=== PATIENT | female | born 1935 | race Caucasian/White ===

== ENCOUNTER 2016-07-11 09:49 | Emergency (ER) | payer BC ==
[~2016-07-11] VITALS: Ht 147.3 cm; Wt 62.7 kg
[~2016-07-11 09:49] MED LIST: ASPIR 8181 M1 PO; CARVEDILOL25 MG PO; CEFTIN500 MG PO; CENTRUM SILVER1 EAC4 PO; FLAGYL500 MG PO; GLUCOPHAGE500 MG PO; LIPITOR20 MG PO; LISINOPRIL5 MG PO; PERCOCET 5/31 TABLET PO; TYLENOL ARTHRI650 MG PO; TYLENOL EXTRA500 MG PO; VITAMIN D2000 UNIT PO
[2016-07-11 10:42] LABS: ADD MIUA? YES; BILIRUBIN SMALL; BLOOD SMALL; COLOR DK YELLOW ((YELLOW)); GLUCOSE (STRIP) NEGATIVE; KETONES 15; LEUKOCYTES SMALL; NITRITE NEGATIVE; PROTEIN (STRIP) 30; SPECIFIC GRAVITY 1.022 (1.000-1.030)
[2016-07-11 11:00] LABS: BACTERIA 1+; CASTS NONE SEEN /LPF; CRYSTALS NONE SEEN; EPITHELIAL CELLS 2+; MUCUS 1+; RED BLOOD CELLS 0-5 /HPF (0-5); UCUL ADDED? NO
[2016-07-11 11:15] LABS: EOSINOPHIL (%) 0 % (0-5); HEMATOCRIT 34.7 % (36.0-46.0); IMMATURE GRANULOCYTE (%) 0.1 % (0.0-0.7); IMMATURE GRANULOCYTE COUNT 0.1 K/uL; LYMPHOCYTE COUNT 0.5 K/uL (1.0-2.8); MCH 27.8 PG (29.0-34.0); MCHC 31.7 G/DL (30.0-36.0); MCV 87.6 FL (83-99); MEAN PLAT.VOLUME 10.3 uM^3 (9.5-12.4); MONOCYTE (%) 8.6 % (3-12); MONOCYTE COUNT 0.7 K/uL (0-0.8); NEUTROPHIL (%) 85.9 % (45-76); NEUTROPHIL COUNT 7.3 K/uL (1.8-6.4); PLATELET COUNT 197 K/uL (156-360); RBC DIS.WIDTH-CV 14.7 % (11.8-14.6); RED BLOOD COUNT 3.96 M/uL (3.80-5.20); WHITE BLOOD COUNT 8.5 K/uL (4.1-10.2)
[2016-07-11 11:25] LABS: CHLORIDE 99 mEq/L (99-109); POTASSIUM 3.7 mEq/L (3.7-5.4); SODIUM 134 mEq/L (136-147)
[2016-07-11 11:27] LABS: GLUCOSE 138 mg/dL (70-99)
[2016-07-11 11:29] LABS: ANION GAP 13 MEQ/L (2-14)
[2016-07-11 11:31] LABS: GFR ESTIMATE (CALCULATED) > 59 mL/min/
[2016-07-11 11:32] LABS: UREA NITROGEN (BUN) 17 mg/dL (9-23)
[2016-07-11] MEDS ORDERED: CIPRO500 MG PO (13:09)
[2016-07-11 13:25] VITALS: BP 106/40
== END 2016-07-11 13:40 | disposition home or self-care (01) ==
LOC: EME 09:49
PROVIDERS: Emergency Medicine
DX: R53.1 Weakness (principal); N39.0 Urinary tract infection, site not specified; I10 Essential (primary) hypertension; E11.9 Type 2 diabetes mellitus without complications; Z79.82 Long term (current) use of aspirin; Z87.442 Personal history of urinary calculi
CPT/HCPCS: 71010; 80048; 81003; 83605; 85025; 93005; 99281; 99285; J0696; J7050

== ENCOUNTER 2016-08-03 06:54 | Emergency (ER) | payer BC ==
[~2016-08-03] VITALS: Ht 147.3 cm; Wt 62.4 kg
[~2016-08-03 06:54] MED LIST changes: +CIPRO500 MG PO
[2016-08-03 07:33] LABS: HEMATOCRIT 36.1 % (36.0-46.0); MCH 27.7 PG (29.0-34.0); MCHC 31.6 G/DL (30.0-36.0); MCV 87.8 FL (83-99); MEAN PLAT.VOLUME 11.6 uM^3 (9.5-12.4); PLATELET COUNT 233 K/uL (156-360); RBC DIS.WIDTH-CV 16.2 % (11.8-14.6); RBC DIS.WIDTH-SD 51.9 % (39-53); RED BLOOD COUNT 4.11 M/uL (3.80-5.20); WHITE BLOOD COUNT 6.4 K/uL (4.1-10.2)
[2016-08-03 07:58] LABS: ALKALINE PHOSPHATASE 81 IU/L (3-129); ANION GAP 8 MEQ/L (2-14); CHLORIDE 104 MEQ/L (99-109); GFR ESTIMATE (CALCULATED) > 59 mL/min/; GLUCOSE 117 mg/dL (70-99); POTASSIUM 4.7 MEQ/L (3.7-5.4); SAMPLE HEMOLYSIS CHECK 2; SAMPLE ICTERIC CHECK 0; SAMPLE LIPEMIA CHECK 0; SODIUM 140 MEQ/L (136-147); TOTAL BILIRUBIN 0.4 MG/DL (0.0-1.0); UREA NITROGEN (BUN) 18 mg/dL (9-23)
[2016-08-03 08:01] LABS: ADD MIUA? YES; BILIRUBIN NEGATIVE; BLOOD NEGATIVE; COLOR YELLOW ((YELLOW)); GLUCOSE (STRIP) NEGATIVE; KETONES NEGATIVE; LEUKOCYTES MODERATE; NITRITE NEGATIVE; PROTEIN (STRIP) 30; SPECIFIC GRAVITY 1.032 (1.000-1.030); UROBILINOGEN 0.2 MG/DL (0.2-1.0)
[2016-08-03 08:48] LABS: RED BLOOD CELLS RARE /HPF (0-5); WHITE BLOOD CELLS 30-40 /HPF (0-5)
[2016-08-03 08:49] LABS: BACTERIA 1+ /HPF; CALCIUM OXALATE CRYSTALS 2+ /HPF; CASTS NONE SEEN /LPF; CRYSTALS PRESENT; EPITHELIAL CELLS RARE /HPF; MUCUS NONE SEEN /LPF; UCUL ADDED? NO
[2016-08-03] MEDS ORDERED: BENTYL20 MG PO (11:17)
[2016-08-03 11:29] VITALS: BP 155/87
== END 2016-08-03 11:35 | disposition home or self-care (01) ==
LOC: EME 06:54
DX: R10.32 Left lower quadrant pain (principal); R19.7 Diarrhea, unspecified; I10 Essential (primary) hypertension; E11.9 Type 2 diabetes mellitus without complications; Z79.82 Long term (current) use of aspirin; Z87.442 Personal history of urinary calculi
CPT/HCPCS: 74000; 80053; 81003; 85027; 99281; 99284

== ENCOUNTER 2016-08-14 12:48 | Inpatient (IN) | payer BC ==
[~2016-08-14] VITALS: Ht 147.3 cm; Wt 61.4 kg
[~2016-08-14 12:48] MED LIST changes: +BENTYL20 MG PO
[2016-08-14 15:13] LABS: EOSINOPHIL COUNT 0.1 K/uL (0-0.3); HEMATOCRIT 35.1 % (36.0-46.0); IMMATURE GRANULOCYTE (%) 0.4 % (0.0-0.7); IMMATURE GRANULOCYTE COUNT 0.5 K/uL; LYMPHOCYTE COUNT 1.4 K/uL (1.0-2.8); MCH 27.2 PG (29.0-34.0); MCHC 32.2 G/DL (30.0-36.0); MCV 84.4 FL (83-99); MEAN PLAT.VOLUME 10.2 uM^3 (9.5-12.4); MONOCYTE (%) 9.9 % (3-12); MONOCYTE COUNT 1.4 K/uL (0-0.8); NEUTROPHIL (%) 78.2 % (45-76); PLATELET COUNT 421 K/uL (156-360); RBC DIS.WIDTH-CV 15.9 % (11.8-14.6); RBC DIS.WIDTH-SD 49.2 % (39-53); RED BLOOD COUNT 4.16 M/uL (3.80-5.20)
[2016-08-14 15:16] LABS: CHLORIDE 98 mEq/L (99-109); POTASSIUM 3.3 mEq/L (3.7-5.4); SODIUM 142 mEq/L (136-147)
[2016-08-14 15:19] LABS: GLUCOSE 98 mg/dL (70-99)
[2016-08-14 15:20] LABS: ANION GAP 11 MEQ/L (2-14)
[2016-08-14 15:21] LABS: TOTAL BILIRUBIN 0.6 mg/dL (0.0-1.0)
[2016-08-14 15:22] LABS: ALKALINE PHOSPHATASE 69 IU/L (3-129); GFR ESTIMATE (CALCULATED) > 59 mL/min/
[2016-08-14 15:23] LABS: UREA NITROGEN (BUN) 22 mg/dL (9-23)
[2016-08-14 15:28] LABS: C DIFF TOXIN ND (NEGATIVE)
[2016-08-14 15:48] LABS: INTERNAL CONTROL VALID? YES
[2016-08-14 17:10] LABS: ADD MIUA? YES; BILIRUBIN SMALL; BLOOD NEGATIVE; COLOR AMBER ((YELLOW)); GLUCOSE (STRIP) NEGATIVE; KETONES 20; LEUKOCYTES SMALL; NITRITE NEGATIVE; PROTEIN (STRIP) NEGATIVE; SPECIFIC GRAVITY 1.024 (1.000-1.030)
[2016-08-14 17:47] LABS: BACTERIA RARE /HPF; BUDDING YEAST RARE; EPITHELIAL CELLS RARE /HPF; MUCUS TRACE /LPF; RED BLOOD CELLS 0-5 /HPF (0-5); UCUL ADDED? NO; UNCLASSIFIED CASTS 0-5 /LPF; UNCLASSIFIED CRYSTALS 2+ /HPF; WHITE BLOOD CELLS 20-30 /HPF (0-5)
[2016-08-15] VITALS: BP 141/64
[2016-08-15 04:00] VITALS: BP 137/76
[2016-08-15 07:15] VITALS: BP 127/59
[2016-08-15 07:43] LABS: HEMATOCRIT 31.2 % (36.0-46.0); MCH 27.4 PG (29.0-34.0); MCHC 32.7 G/DL (30.0-36.0); MCV 83.9 FL (83-99); MEAN PLAT.VOLUME 10.8 uM^3 (9.5-12.4); PLATELET COUNT 413 K/uL (156-360); RBC DIS.WIDTH-CV 16.1 % (11.8-14.6); RBC DIS.WIDTH-SD 49.4 % (39-53); RED BLOOD COUNT 3.72 M/uL (3.80-5.20); WHITE BLOOD COUNT 10.6 K/uL (4.1-10.2)
[2016-08-15 07:59] LABS: EOSINOPHIL (%) 1.3 % (0-5); EOSINOPHIL COUNT 0.1 K/uL (0-0.3); IMMATURE GRANULOCYTE (%) 0.5 % (0.0-0.7); IMMATURE GRANULOCYTE COUNT 0.1 K/uL; LYMPHOCYTE COUNT 1.1 K/uL (1.0-2.8); MONOCYTE (%) 11.9 % (3-12); MONOCYTE COUNT 1.3 K/uL (0-0.8); NEUTROPHIL (%) 75.7 % (45-76)
[2016-08-15 09:16] LABS: ANION GAP 6 MEQ/L (2-14); CHLORIDE 102 MEQ/L (99-109); GFR ESTIMATE (CALCULATED) > 59 mL/min/; GLUCOSE 77 mg/dL (70-99); POTASSIUM 2.9 MEQ/L (3.7-5.4); SAMPLE HEMOLYSIS CHECK 0; SAMPLE ICTERIC CHECK 0; SAMPLE LIPEMIA CHECK 0; SODIUM 140 MEQ/L (136-147); UREA NITROGEN (BUN) 21 mg/dL (9-23)
[2016-08-15 14:57] VITALS: BP 131/63
[2016-08-15 23:59] VITALS: BP 114/50
[2016-08-16 06:38] LABS: HEMATOCRIT 30.5 % (36.0-46.0); MCH 27.5 PG (29.0-34.0); MCHC 32.1 G/DL (30.0-36.0); MCV 85.4 FL (83-99); MEAN PLAT.VOLUME 10.8 uM^3 (9.5-12.4); PLATELET COUNT 404 K/uL (156-360); RBC DIS.WIDTH-CV 16.3 % (11.8-14.6); RBC DIS.WIDTH-SD 51.2 % (39-53); RED BLOOD COUNT 3.57 M/uL (3.80-5.20); WHITE BLOOD COUNT 7.5 K/uL (4.1-10.2)
[2016-08-16 07:06] LABS: ANION GAP 7 MEQ/L (2-14); CHLORIDE 104 MEQ/L (99-109); GFR ESTIMATE (CALCULATED) > 59 mL/min/; GLUCOSE 70 mg/dL (70-99); SAMPLE HEMOLYSIS CHECK 0; SAMPLE ICTERIC CHECK 0; SAMPLE LIPEMIA CHECK 0; SODIUM 141 MEQ/L (136-147); UREA NITROGEN (BUN) 14 mg/dL (9-23)
[2016-08-16 08:07] VITALS: BP 123/64
[2016-08-16 17:08] VITALS: BP 110/60
[2016-08-16 23:40] VITALS: BP 105/54
[2016-08-17 07:04] LABS: HEMATOCRIT 31.4 % (36.0-46.0); MCH 27.8 PG (29.0-34.0); MCHC 32.2 G/DL (30.0-36.0); MCV 86.5 FL (83-99); MEAN PLAT.VOLUME 10.1 uM^3 (9.5-12.4); PLATELET COUNT 391 K/uL (156-360); RBC DIS.WIDTH-CV 16.2 % (11.8-14.6); RBC DIS.WIDTH-SD 51.7 % (39-53); RED BLOOD COUNT 3.63 M/uL (3.80-5.20); WHITE BLOOD COUNT 7.7 K/uL (4.1-10.2)
[2016-08-17 07:32] LABS: ANION GAP 8 MEQ/L (2-14); CHLORIDE 109 MEQ/L (99-109); GFR ESTIMATE (CALCULATED) > 59 mL/min/; GLUCOSE 89 mg/dL (70-99); POTASSIUM 3.2 MEQ/L (3.7-5.4); SAMPLE HEMOLYSIS CHECK 0; SAMPLE ICTERIC CHECK 0; SAMPLE LIPEMIA CHECK 0; SODIUM 144 MEQ/L (136-147); UREA NITROGEN (BUN) 12 mg/dL (9-23)
[2016-08-17 08:26] VITALS: BP 120/50
[2016-08-17 08:43] LABS: MAGNESIUM 1.8 mg/dl (1.3-2.7)
[2016-08-17 15:00] VITALS: BP 99/52
[2016-08-17 21:49] VITALS: BP 112/60
[2016-08-18 00:27] VITALS: BP 104/59
[2016-08-18 07:51] VITALS: BP 121/60
[2016-08-18 09:45] LABS: HEMATOCRIT 36.2 % (36.0-46.0); MCH 27.5 PG (29.0-34.0); MCHC 31.8 G/DL (30.0-36.0); MCV 86.6 FL (83-99); MEAN PLAT.VOLUME 10.9 uM^3 (9.5-12.4); PLATELET COUNT 499 K/uL (156-360); RBC DIS.WIDTH-CV 16.5 % (11.8-14.6); RBC DIS.WIDTH-SD 52.4 % (39-53); RED BLOOD COUNT 4.18 M/uL (3.80-5.20); WHITE BLOOD COUNT 6.5 K/uL (4.1-10.2)
[2016-08-18 09:58] LABS: EOSINOPHIL (%) 3.8 % (0-5); EOSINOPHIL COUNT 0.3 K/uL (0-0.3); IMMATURE GRANULOCYTE (%) 0.5 % (0.0-0.7); LYMPHOCYTE COUNT 1.1 K/uL (1.0-2.8); MONOCYTE (%) 11.3 % (3-12); MONOCYTE COUNT 0.7 K/uL (0-0.8); NEUTROPHIL (%) 66.6 % (45-76); NEUTROPHIL COUNT 4.3 K/uL (1.8-6.4)
[2016-08-18 10:26] LABS: ANION GAP 10 MEQ/L (2-14); CHLORIDE 108 MEQ/L (99-109); GFR ESTIMATE (CALCULATED) > 59 mL/min/; GLUCOSE 100 mg/dL (70-99); POTASSIUM 3.8 MEQ/L (3.7-5.4); SAMPLE HEMOLYSIS CHECK 0; SAMPLE ICTERIC CHECK 0; SAMPLE LIPEMIA CHECK 0; SODIUM 142 MEQ/L (136-147); UREA NITROGEN (BUN) 9 mg/dL (9-23)
[2016-08-18] MEDS ORDERED: VANCOMYCIN HCL125 MG PO (14:45)
[2016-08-18] MEDS ORDERED: TYLENOL REGULA325 MG PO (14:50)
[2016-08-18 14:56] VITALS: BP 122/64
== END 2016-08-18 18:05 | disposition home or self-care (01) | DRG 372 ==
LOC: EME 12:48 → 5SOUTH 20:45 → EDOF 20:45 → 5SOUTH 22:28
PROVIDERS: Emergency Medicine; Hospitalist; Physician Assistant; Student in an Organized Health Care Education/Training Program
DX: A04.7 Enterocolitis due to Clostridium difficile (principal); K82.3 Fistula of gallbladder; E87.6 Hypokalemia; K80.20 Calculus of gallbladder without cholecystitis without obstruction; E11.9 Type 2 diabetes mellitus without complications; I50.9 Heart failure, unspecified; E78.5 Hyperlipidemia, unspecified; E86.0 Dehydration; K56.3 Gallstone ileus
CPT/HCPCS: 74176; 78226; 80048; 80053; 81003; 83605; 83630; 83735; 85025; 85027; 87086; 87177; 87329; 87493; 87506; 99281; 99285; A9537; J0696; J1650; J1956; J2270; J3480; J7030; J7050; S0030

== ENCOUNTER 2016-09-30 16:53 | Inpatient (IN) | payer BC ==
[~2016-09-30] VITALS: Ht 147.3 cm; Wt 54.4 kg
[~2016-09-30 16:53] MED LIST changes: +TYLENOL REGULA325 MG PO; +VANCOMYCIN HCL125 MG PO
[2016-09-30 17:36] LABS: HEMATOCRIT 33.3 % (36.0-46.0); MCH 28.3 PG (29.0-34.0); MCHC 33.6 G/DL (30.0-36.0); MCV 84.1 FL (83-99); MEAN PLAT.VOLUME 10.9 uM^3 (9.5-12.4); RBC DIS.WIDTH-CV 19.8 % (11.8-14.6); RBC DIS.WIDTH-SD 60.2 % (39-53); RED BLOOD COUNT 3.96 M/uL (3.80-5.20); WHITE BLOOD COUNT 6.9 K/uL (4.1-10.2)
[2016-09-30 17:42] LABS: PLATELET COUNT 394 K/uL (156-360)
[2016-09-30 17:58] LABS: GLUCOSE 114 mg/dL (70-99)
[2016-09-30 17:59] LABS: ANION GAP 8 MEQ/L (2-14)
[2016-09-30 18:01] LABS: GFR ESTIMATE (CALCULATED) > 59 mL/min/
[2016-09-30 18:02] LABS: POTASSIUM 2.3 mEq/L (3.7-5.4); UREA NITROGEN (BUN) 21 mg/dL (9-23)
[2016-09-30 18:09] LABS: CHLORIDE 106 MEQ/L (99-109); SODIUM 146 MEQ/L (136-147)
[2016-09-30 20:12] LABS: TROP-I INTERPRETATION NEGATIVE; TROPONIN-I 0.02 ng/mL (0.0-0.30)
[2016-09-30 21:12] LABS: ADD MIUA? YES; BILIRUBIN NEGATIVE; BLOOD NEGATIVE; COLOR AMBER ((YELLOW)); GLUCOSE (STRIP) NEGATIVE; KETONES 20; LEUKOCYTES NEGATIVE; NITRITE NEGATIVE; PROTEIN (STRIP) NEGATIVE; SPECIFIC GRAVITY 1.017 (1.000-1.030); UROBILINOGEN 0.2 MG/DL (0.2-1.0)
[2016-09-30 21:17] LABS: BACTERIA RARE /HPF; CALCIUM OXALATE CRYSTALS 1+ /HPF; EPITHELIAL CELLS RARE /HPF; GRANULAR CASTS 0-5 /LPF; HYALINE CASTS 0-5 /LPF; MUCUS 1+ /LPF; RED BLOOD CELLS 0-5 /HPF (0-5); UCUL ADDED? NO
[2016-09-30 22:00] LABS: INTERNAL CONTROL VALID? YES
[2016-09-30 22:11] LABS: C DIFF TOXIN POSITIVE (NEGATIVE)
[2016-09-30 22:12] LABS: PROBE CHECK PASS
[2016-10-01] MEDS ORDERED: ALENDRONATE SOD70 MG PO (00:32)
[2016-10-01 07:03] VITALS: BP 124/50
[2016-10-01 07:28] VITALS: BP 106/57
[2016-10-01 07:46] LABS: POTASSIUM 2.5 MEQ/L (3.7-5.4)
[2016-10-01 11:51] VITALS: BP 118/60
[2016-10-01 12:19] LABS: ADD MIUA? YES; BILIRUBIN NEGATIVE; BLOOD LARGE; COLOR AMBER ((YELLOW)); GLUCOSE (STRIP) NEGATIVE; KETONES 20; LEUKOCYTES LARGE; NITRITE POSITIVE; PROTEIN (STRIP) 30; SPECIFIC GRAVITY 1.036 (1.000-1.030); UROBILINOGEN 0.2 MG/DL (0.2-1.0)
[2016-10-01 13:05] LABS: BACTERIA 3+ /HPF; BUDDING YEAST 2+; EPITHELIAL CELLS RARE /HPF; MUCUS NONE SEEN /LPF; RED BLOOD CELLS TNTC /HPF (0-5); UCUL ADDED? YES; WHITE BLOOD CELLS TNTC /HPF (0-5)
[2016-10-01 16:16] LABS: ANION GAP 6 MEQ/L (2-14); CHLORIDE 111 MEQ/L (99-109); POTASSIUM 2.6 MEQ/L (3.7-5.4); SAMPLE HEMOLYSIS CHECK 0; SAMPLE ICTERIC CHECK 0; SAMPLE LIPEMIA CHECK 0; SODIUM 144 MEQ/L (136-147)
[2016-10-01 16:21] LABS: GFR ESTIMATE (CALCULATED) > 59 mL/min/; GLUCOSE 92 mg/dL (70-99); UREA NITROGEN (BUN) 17 mg/dL (9-23)
[2016-10-01 16:27] VITALS: BP 120/68
[2016-10-01 20:00] VITALS: BP 100/53
[2016-10-02 00:11] VITALS: BP 102/53
[2016-10-02 03:45] LABS: INTERNAL CONTROL VALID? YES
[2016-10-02 04:50] VITALS: BP 103/54
[2016-10-02 07:03] LABS: HEMATOCRIT 32.6 % (36.0-46.0); MCH 27.7 PG (29.0-34.0); MCHC 32.5 G/DL (30.0-36.0); MCV 85.1 FL (83-99); MEAN PLAT.VOLUME 10.3 uM^3 (9.5-12.4); PLATELET COUNT 363 K/uL (156-360); RBC DIS.WIDTH-CV 20.7 % (11.8-14.6); RBC DIS.WIDTH-SD 63.9 % (39-53); RED BLOOD COUNT 3.83 M/uL (3.80-5.20); WHITE BLOOD COUNT 5.6 K/uL (4.1-10.2)
[2016-10-02 07:25] LABS: ANION GAP 7 MEQ/L (2-14); CHLORIDE 112 MEQ/L (99-109); EOSINOPHIL (%) 2.5 % (0-5); EOSINOPHIL COUNT 0.1 K/uL (0-0.3); GFR ESTIMATE (CALCULATED) > 59 mL/min/; GLUCOSE 102 mg/dL (70-99); IMMATURE GRANULOCYTE (%) 0.4 % (0.0-0.7); LYMPHOCYTE COUNT 0.9 K/uL (1.0-2.8); MONOCYTE (%) 9.7 % (3-12); MONOCYTE COUNT 0.5 K/uL (0-0.8); NEUTROPHIL (%) 71.2 % (45-76); POTASSIUM 2.7 MEQ/L (3.7-5.4); SAMPLE HEMOLYSIS CHECK 0; SAMPLE ICTERIC CHECK 0; SAMPLE LIPEMIA CHECK 0; SODIUM 146 MEQ/L (136-147); UREA NITROGEN (BUN) 15 mg/dL (9-23)
[2016-10-02 08:04] VITALS: BP 108/56
[2016-10-02 11:35] VITALS: BP 110/58
[2016-10-02 16:23] VITALS: BP 108/78
[2016-10-02 16:30] LABS: POINT-OF-CARE METER ID UU14174225
[2016-10-02 20:00] VITALS: BP 108/73
[2016-10-03 00:08] VITALS: BP 106/72
[2016-10-03 07:24] LABS: EOSINOPHIL COUNT 0.2 K/uL (0-0.3); HEMATOCRIT 31.2 % (36.0-46.0); IMMATURE GRANULOCYTE (%) 0.3 % (0.0-0.7); INSTRUMENT ABS NEUTROPHIL CT 5.7 K/uL; LYMPHOCYTE COUNT 1.2 K/uL (1.0-2.8); MCH 28.1 PG (29.0-34.0); MCHC 32.4 G/DL (30.0-36.0); MCV 86.7 FL (83-99); MEAN PLAT.VOLUME 9.9 uM^3 (9.5-12.4); MONOCYTE (%) 9.7 % (3-12); MONOCYTE COUNT 0.8 K/uL (0-0.8); NEUTROPHIL (%) 72.4 % (45-76); NEUTROPHIL COUNT 5.7 K/uL (1.8-6.4); PLATELET COUNT 328 K/uL (156-360); RBC DIS.WIDTH-CV 21.2 % (11.8-14.6); RBC DIS.WIDTH-SD 66.3 % (39-53)
[2016-10-03 07:28] LABS: WHITE BLOOD COUNT 7.9 K/uL (4.1-10.2)
[2016-10-03 07:42] LABS: ANION GAP 5 MEQ/L (2-14); CHLORIDE 115 MEQ/L (99-109); GFR ESTIMATE (CALCULATED) > 59 mL/min/; GLUCOSE 146 mg/dL (70-99); POTASSIUM 2.8 MEQ/L (3.7-5.4); SAMPLE HEMOLYSIS CHECK 0; SAMPLE ICTERIC CHECK 0; SAMPLE LIPEMIA CHECK 0; SODIUM 146 MEQ/L (136-147); UREA NITROGEN (BUN) 12 mg/dL (9-23)
[2016-10-03 08:47] VITALS: BP 124/72
[2016-10-03 12:21] LABS: POINT-OF-CARE METER ID UU14174225
[2016-10-03 12:35] VITALS: BP 122/74
[2016-10-03 16:00] VITALS: BP 121/74
[2016-10-03 17:24] LABS: POINT-OF-CARE METER ID UU14174225
[2016-10-04 01:05] VITALS: BP 109/68
[2016-10-04 04:06] VITALS: BP 111/64
[2016-10-04 07:15] LABS: EOSINOPHIL (%) 2.5 % (0-5); EOSINOPHIL COUNT 0.2 K/uL (0-0.3); HEMATOCRIT 34.2 % (36.0-46.0); IMMATURE GRANULOCYTE (%) 0.6 % (0.0-0.7); IMMATURE GRANULOCYTE COUNT 0.1 K/uL; INSTRUMENT ABS NEUTROPHIL CT 6.4 K/uL; MCH 28.5 PG (29.0-34.0); MCHC 32.5 G/DL (30.0-36.0); MCV 87.9 FL (83-99); MEAN PLAT.VOLUME 10.4 uM^3 (9.5-12.4); MONOCYTE (%) 10.9 % (3-12); MONOCYTE COUNT 0.9 K/uL (0-0.8); NEUTROPHIL (%) 74.4 % (45-76); NEUTROPHIL COUNT 6.4 K/uL (1.8-6.4); NRBC (%) 0.7 /100 WBC (0-0); PLATELET COUNT 401 K/uL (156-360); RBC DIS.WIDTH-SD 70.5 % (39-53); RED BLOOD COUNT 3.89 M/uL (3.80-5.20); WHITE BLOOD COUNT 8.7 K/uL (4.1-10.2)
[2016-10-04 07:44] LABS: ANION GAP 5 MEQ/L (2-14); CHLORIDE 118 MEQ/L (99-109); GFR ESTIMATE (CALCULATED) > 59 mL/min/; GLUCOSE 135 mg/dL (70-99); SAMPLE HEMOLYSIS CHECK 2; SAMPLE ICTERIC CHECK 0; SAMPLE LIPEMIA CHECK 0; SODIUM 146 MEQ/L (136-147); UREA NITROGEN (BUN) 8 mg/dL (9-23)
[2016-10-04 07:46] LABS: POTASSIUM 3.8 MEQ/L (3.7-5.4)
[2016-10-04 08:58] VITALS: BP 110/68
[2016-10-04 17:25] LABS: POINT-OF-CARE METER ID UU14188625
[2016-10-04 19:49] VITALS: BP 137/71
[2016-10-04 21:07] LABS: POINT-OF-CARE METER ID UU14188625
[2016-10-04 23:21] VITALS: BP 123/68
[2016-10-05 03:41] VITALS: BP 125/74
[2016-10-05 07:59] VITALS: BP 146/72
[2016-10-05 08:53] LABS: ANION GAP 5 MEQ/L (2-14); CHLORIDE 118 MEQ/L (99-109); GFR ESTIMATE (CALCULATED) > 59 mL/min/; POTASSIUM 3.8 MEQ/L (3.7-5.4); SAMPLE HEMOLYSIS CHECK 0; SAMPLE ICTERIC CHECK 0; SAMPLE LIPEMIA CHECK 0; SODIUM 149 MEQ/L (136-147); UREA NITROGEN (BUN) 8 mg/dL (9-23)
[2016-10-05 08:54] LABS: GLUCOSE 98 mg/dL (70-99)
[2016-10-05 12:00] VITALS: BP 140/70
[2016-10-05 16:05] VITALS: BP 120/60
[2016-10-05 20:00] VITALS: BP 107/63
[2016-10-06 00:35] VITALS: BP 103/62
[2016-10-06 03:43] VITALS: BP 106/64
[2016-10-06 07:15] LABS: EOSINOPHIL (%) 3.6 % (0-5); EOSINOPHIL COUNT 0.3 K/uL (0-0.3); HEMATOCRIT 36.3 % (36.0-46.0); IMMATURE GRANULOCYTE (%) 0.4 % (0.0-0.7); INSTRUMENT ABS NEUTROPHIL CT 5.3 K/uL; LYMPHOCYTE COUNT 1.4 K/uL (1.0-2.8); MCH 28.5 PG (29.0-34.0); MCV 89.2 FL (83-99); MEAN PLAT.VOLUME 10.3 uM^3 (9.5-12.4); MONOCYTE (%) 13.7 % (3-12); MONOCYTE COUNT 1.1 K/uL (0-0.8); NEUTROPHIL (%) 64.9 % (45-76); NEUTROPHIL COUNT 5.3 K/uL (1.8-6.4); PLATELET COUNT 477 K/uL (156-360); RBC DIS.WIDTH-CV 22.9 % (11.8-14.6); RBC DIS.WIDTH-SD 74.8 % (39-53); RED BLOOD COUNT 4.07 M/uL (3.80-5.20); WHITE BLOOD COUNT 8.1 K/uL (4.1-10.2)
[2016-10-06 07:35] LABS: ANION GAP 3 MEQ/L (2-14); CHLORIDE 115 MEQ/L (99-109); GFR ESTIMATE (CALCULATED) > 59 mL/min/; GLUCOSE 137 mg/dL (70-99); POTASSIUM 3.8 MEQ/L (3.7-5.4); SAMPLE HEMOLYSIS CHECK 0; SAMPLE ICTERIC CHECK 0; SAMPLE LIPEMIA CHECK 0; SODIUM 143 MEQ/L (136-147); UREA NITROGEN (BUN) 8 mg/dL (9-23)
[2016-10-06 08:11] VITALS: BP 110/68
[2016-10-06 11:56] VITALS: BP 110/60
[2016-10-06 16:06] VITALS: BP 130/60
[2016-10-06 19:49] VITALS: BP 112/60
[2016-10-07 03:55] VITALS: BP 120/76
[2016-10-07 09:13] VITALS: BP 110/59
[2016-10-07 10:04] LABS: ANION GAP 3 MEQ/L (2-14); CHLORIDE 117 MEQ/L (99-109); GFR ESTIMATE (CALCULATED) > 59 mL/min/; GLUCOSE 97 mg/dL (70-99); POTASSIUM 4.1 MEQ/L (3.7-5.4); SAMPLE HEMOLYSIS CHECK 0; SAMPLE ICTERIC CHECK 0; SAMPLE LIPEMIA CHECK 0; SODIUM 145 MEQ/L (136-147); UREA NITROGEN (BUN) 8 mg/dL (9-23)
[2016-10-07 11:34] VITALS: BP 129/64
[2016-10-07 11:39] LABS: EOSINOPHIL (%) 1.7 % (0-5); EOSINOPHIL COUNT 0.1 K/uL (0-0.3); HEMATOCRIT 34.6 % (36.0-46.0); IMMATURE GRANULOCYTE (%) 0.4 % (0.0-0.7); INSTRUMENT ABS NEUTROPHIL CT 5.3 K/uL; LYMPHOCYTE COUNT 0.9 K/uL (1.0-2.8); MCH 28.2 PG (29.0-34.0); MCHC 31.5 G/DL (30.0-36.0); MCV 89.4 FL (83-99); MONOCYTE (%) 11.8 % (3-12); MONOCYTE COUNT 0.8 K/uL (0-0.8); NEUTROPHIL COUNT 5.3 K/uL (1.8-6.4); RBC DIS.WIDTH-CV 23.5 % (11.8-14.6); RBC DIS.WIDTH-SD 75.6 % (39-53); RED BLOOD COUNT 3.87 M/uL (3.80-5.20); WHITE BLOOD COUNT 7.1 K/uL (4.1-10.2)
[2016-10-07 12:29] LABS: PLATELET CLUMPS PRESENT
[2016-10-07 12:58] LABS: MEAN PLAT.VOLUME 11.3 uM^3 (9.5-12.4)
[2016-10-07 16:00] VITALS: BP 119/71
[2016-10-07 17:09] LABS: POINT-OF-CARE METER ID UU14188625
[2016-10-07 20:00] VITALS: BP 98/54
[2016-10-07 21:12] LABS: POINT-OF-CARE METER ID UU14188625
[2016-10-08] VITALS: BP 97/52
[2016-10-08 04:00] VITALS: BP 105/52
[2016-10-08 07:53] VITALS: BP 97/53
[2016-10-08 11:05] VITALS: BP 113/57
[2016-10-08 12:17] LABS: EOSINOPHIL COUNT 0.1 K/uL (0-0.3); HEMATOCRIT 31.9 % (36.0-46.0); IMMATURE GRANULOCYTE (%) 0.3 % (0.0-0.7); INSTRUMENT ABS NEUTROPHIL CT 4.6 K/uL; LYMPHOCYTE COUNT 0.6 K/uL (1.0-2.8); MCH 28.6 PG (29.0-34.0); MCV 89.4 FL (83-99); MEAN PLAT.VOLUME 10.8 uM^3 (9.5-12.4); MONOCYTE (%) 12.8 % (3-12); MONOCYTE COUNT 0.8 K/uL (0-0.8); NEUTROPHIL (%) 75.5 % (45-76); NEUTROPHIL COUNT 4.6 K/uL (1.8-6.4); NRBC (%) 0.3 /100 WBC (0-0); PLATELET COUNT 344 K/uL (156-360); RBC DIS.WIDTH-CV 22.8 % (11.8-14.6); RBC DIS.WIDTH-SD 74.1 % (39-53); RED BLOOD COUNT 3.57 M/uL (3.80-5.20); WHITE BLOOD COUNT 6.1 K/uL (4.1-10.2)
[2016-10-08 12:49] LABS: ANION GAP 4 MEQ/L (2-14); CHLORIDE 113 MEQ/L (99-109); GFR ESTIMATE (CALCULATED) > 59 mL/min/; GLUCOSE 120 mg/dL (70-99); POTASSIUM 4.2 MEQ/L (3.7-5.4); SAMPLE HEMOLYSIS CHECK 0; SAMPLE ICTERIC CHECK 0; SAMPLE LIPEMIA CHECK 0; SODIUM 144 MEQ/L (136-147); UREA NITROGEN (BUN) 7 mg/dL (9-23)
[2016-10-08 15:49] VITALS: BP 112/68
[2016-10-08 19:59] VITALS: BP 106/57
[2016-10-09] VITALS: BP 102/59
[2016-10-09 03:47] VITALS: BP 107/52
[2016-10-09 07:34] VITALS: BP 106/74
[2016-10-09 07:36] LABS: HEMATOCRIT 32.6 % (36.0-46.0); MCH 28.4 PG (29.0-34.0); MCV 91.6 FL (83-99); MEAN PLAT.VOLUME 10.2 uM^3 (9.5-12.4); PLATELET COUNT 313 K/uL (156-360); RBC DIS.WIDTH-CV 22.7 % (11.8-14.6); RBC DIS.WIDTH-SD 76.4 % (39-53); RED BLOOD COUNT 3.56 M/uL (3.80-5.20)
[2016-10-09 08:10] LABS: ANION GAP 3 MEQ/L (2-14); CHLORIDE 114 MEQ/L (99-109); GFR ESTIMATE (CALCULATED) > 59 mL/min/; GLUCOSE 103 mg/dL (70-99); POTASSIUM 3.9 MEQ/L (3.7-5.4); SAMPLE HEMOLYSIS CHECK 0; SAMPLE ICTERIC CHECK 0; SAMPLE LIPEMIA CHECK 0; SODIUM 144 MEQ/L (136-147); UREA NITROGEN (BUN) 7 mg/dL (9-23)
[2016-10-09 09:41] LABS: EOSINOPHIL (%) 1.4 % (0-5); EOSINOPHIL COUNT 0.1 K/uL (0-0.3); IMMATURE GRANULOCYTE (%) 0.3 % (0.0-0.7); INSTRUMENT ABS NEUTROPHIL CT 5.5 K/uL; LYMPHOCYTE COUNT 0.6 K/uL (1.0-2.8); MONOCYTE (%) 10.6 % (3-12); MONOCYTE COUNT 0.7 K/uL (0-0.8); NEUTROPHIL COUNT 5.5 K/uL (1.8-6.4)
[2016-10-09 11:33] LABS: POINT-OF-CARE METER ID UU14174225
[2016-10-09 11:46] VITALS: BP 98/58
[2016-10-09 16:08] VITALS: BP 88/48
[2016-10-09 17:08] LABS: POINT-OF-CARE METER ID UU14188625
[2016-10-09 19:52] VITALS: BP 105/66
[2016-10-10 00:14] VITALS: BP 117/61
[2016-10-10 04:11] VITALS: BP 105/59
[2016-10-10 08:31] VITALS: BP 103/65
[2016-10-10 08:32] LABS: EOSINOPHIL (%) 3.2 % (0-5); EOSINOPHIL COUNT 0.2 K/uL (0-0.3); HEMATOCRIT 31.6 % (36.0-46.0); IMMATURE GRANULOCYTE (%) 0.3 % (0.0-0.7); LYMPHOCYTE COUNT 0.7 K/uL (1.0-2.8); MCH 28.9 PG (29.0-34.0); MCHC 31.3 G/DL (30.0-36.0); MCV 92.4 FL (83-99); MEAN PLAT.VOLUME 10.6 uM^3 (9.5-12.4); MONOCYTE (%) 10.5 % (3-12); MONOCYTE COUNT 0.7 K/uL (0-0.8); NEUTROPHIL (%) 75.6 % (45-76); PLATELET COUNT 309 K/uL (156-360); RBC DIS.WIDTH-CV 22.9 % (11.8-14.6); RBC DIS.WIDTH-SD 77.6 % (39-53); RED BLOOD COUNT 3.42 M/uL (3.80-5.20); WHITE BLOOD COUNT 6.6 K/uL (4.1-10.2)
[2016-10-10 08:52] LABS: ANION GAP 5 MEQ/L (2-14); CHLORIDE 113 MEQ/L (99-109); POTASSIUM 3.3 MEQ/L (3.7-5.4); SAMPLE HEMOLYSIS CHECK 0; SAMPLE ICTERIC CHECK 0; SAMPLE LIPEMIA CHECK 0; SODIUM 147 MEQ/L (136-147)
[2016-10-10 08:58] LABS: GFR ESTIMATE (CALCULATED) > 59 mL/min/; GLUCOSE 84 mg/dL (70-99); UREA NITROGEN (BUN) 7 mg/dL (9-23)
[2016-10-10 11:51] VITALS: BP 103/64
[2016-10-10 20:00] VITALS: BP 97/52
[2016-10-10 23:53] VITALS: BP 145/71
[2016-10-11 03:34] VITALS: BP 102/60
[2016-10-11 07:53] VITALS: BP 114/72
[2016-10-11 08:03] LABS: HEMATOCRIT 30.8 % (36.0-46.0); MCH 29.3 PG (29.0-34.0); MCHC 31.8 G/DL (30.0-36.0); MCV 92.2 FL (83-99); MEAN PLAT.VOLUME 10.4 uM^3 (9.5-12.4); NRBC (%) 0.3 /100 WBC (0-0); PLATELET COUNT 302 K/uL (156-360); RBC DIS.WIDTH-CV 22.6 % (11.8-14.6); RBC DIS.WIDTH-SD 77.2 % (39-53); RED BLOOD COUNT 3.34 M/uL (3.80-5.20); WHITE BLOOD COUNT 7.2 K/uL (4.1-10.2)
[2016-10-11 08:28] LABS: ALKALINE PHOSPHATASE 46 IU/L (3-129); ANION GAP 3 MEQ/L (2-14); CHLORIDE 111 MEQ/L (99-109); DIRECT BILIRUBIN 0.1 mg/dL (0.0-0.3); GFR ESTIMATE (CALCULATED) > 59 mL/min/; GLUCOSE 70 mg/dL (70-99); POTASSIUM 3.5 MEQ/L (3.7-5.4); SAMPLE HEMOLYSIS CHECK 0; SAMPLE ICTERIC CHECK 0; SAMPLE LIPEMIA CHECK 0; SODIUM 145 MEQ/L (136-147); TOTAL BILIRUBIN 0.4 MG/DL (0.0-1.0); UREA NITROGEN (BUN) 7 mg/dL (9-23)
[2016-10-11 08:59] LABS: EOSINOPHIL (%) 3.2 % (0-5); EOSINOPHIL COUNT 0.2 K/uL (0-0.3); HEMATOLOGY COMMENT 1 SMEAR COMPATIBLE; IMMATURE GRANULOCYTE (%) 0.3 % (0.0-0.7); INSTRUMENT ABS NEUTROPHIL CT 5.5 K/uL; LYMPHOCYTE COUNT 0.8 K/uL (1.0-2.8); MONOCYTE (%) 8.7 % (3-12); MONOCYTE COUNT 0.6 K/uL (0-0.8); NEUTROPHIL (%) 76.5 % (45-76); NEUTROPHIL COUNT 5.5 K/uL (1.8-6.4)
[2016-10-11 09:52] LABS: MAGNESIUM 1.8 mg/dl (1.3-2.7); PREALBUMIN 6.5 mg/dL (10-40)
[2016-10-11 12:22] VITALS: BP 121/74
[2016-10-11 12:38] LABS: POINT-OF-CARE METER ID UU14174225
[2016-10-11 15:42] VITALS: BP 124/72
[2016-10-11 17:41] LABS: POINT-OF-CARE METER ID UU14174225
[2016-10-11 19:42] VITALS: BP 110/53
[2016-10-12] VITALS (13 sets, daily range): BP systolic 108–143; BP diastolic 52–68
[2016-10-12 06:54] LABS: HEMATOCRIT 30.4 % (36.0-46.0); MCH 29.1 PG (29.0-34.0); MCHC 31.6 G/DL (30.0-36.0); MCV 92.1 FL (83-99); MEAN PLAT.VOLUME 10.2 uM^3 (9.5-12.4); PLATELET COUNT 313 K/uL (156-360); RBC DIS.WIDTH-CV 22.3 % (11.8-14.6); RBC DIS.WIDTH-SD 75.6 % (39-53)
[2016-10-12 07:10] LABS: INTER. NORMALIZED RATIO 1.1; PROTHROMBIN TIME 11.2 (9.2-11.2); PTT 28.4 (25-32)
[2016-10-12 07:14] LABS: ANION GAP 2 MEQ/L (2-14); CHLORIDE 110 MEQ/L (99-109); GFR ESTIMATE (CALCULATED) > 59 mL/min/; GLUCOSE 83 mg/dL (70-99); MAGNESIUM 1.7 mg/dl (1.3-2.7); POTASSIUM 3.6 MEQ/L (3.7-5.4); SAMPLE HEMOLYSIS CHECK 0; SAMPLE ICTERIC CHECK 0; SAMPLE LIPEMIA CHECK 0; SODIUM 146 MEQ/L (136-147); TRIGLYCERIDES 71 MG/DL (Normal: <150); UREA NITROGEN (BUN) 6 mg/dL (9-23)
[2016-10-12 09:23] LABS: EOSINOPHIL (%) 2.4 % (0-5); EOSINOPHIL COUNT 0.2 K/uL (0-0.3); IMMATURE GRANULOCYTE (%) 0.4 % (0.0-0.7); INSTRUMENT ABS NEUTROPHIL CT 6.5 K/uL; LYMPHOCYTE COUNT 0.8 K/uL (1.0-2.8); MONOCYTE (%) 5.5 % (3-12); MONOCYTE COUNT 0.4 K/uL (0-0.8); NEUTROPHIL COUNT 6.5 K/uL (1.8-6.4)
[2016-10-12 12:48] LABS: TYPE OF FLUID THORACENTESIS
[2016-10-12 12:59] LABS: LACTATE DEHYDROGENASE 176 IU/L (20-246)
[2016-10-12 13:09] LABS: BODY FLUID RBC'S < 1000 /MM^3 (0-100); BODY FLUID WBC'S 68 /MM^3 (0-500)
[2016-10-12 13:29] LABS: BODY FLUID LDH 48 IU/L
[2016-10-12 13:30] LABS: BODY FLUID PROTEIN < 3 G/DL
[2016-10-12 13:44] LABS: BODY FLUID EOSINOPHILS 1 % (0-25); MONO RAW COUNT 18; MONONUCLEAR WBC'S 18 %; POLY RAW COUNT 81; POLYNUCLEAR WBC'S 81 % (0-25)
[2016-10-12 15:44] LABS: ANION GAP 4 MEQ/L (2-14); CHLORIDE 108 MEQ/L (99-109); MAGNESIUM 1.8 mg/dl (1.3-2.7); SAMPLE HEMOLYSIS CHECK 1; SAMPLE ICTERIC CHECK 0; SAMPLE LIPEMIA CHECK 0; SODIUM 144 MEQ/L (136-147)
[2016-10-12 15:48] LABS: POTASSIUM 3.6 MEQ/L (3.7-5.4)
[2016-10-12 15:58] LABS: GFR ESTIMATE (CALCULATED) > 59 mL/min/; GLUCOSE 175 mg/dL (70-99); UREA NITROGEN (BUN) 6 mg/dL (9-23)
[2016-10-12 16:58] LABS: POINT-OF-CARE METER ID UU14174225
[2016-10-13 04:00] VITALS: BP 127/67
[2016-10-13 06:44] LABS: EOSINOPHIL (%) 3.8 % (0-5); EOSINOPHIL COUNT 0.2 K/uL (0-0.3); HEMATOCRIT 28.1 % (36.0-46.0); IMMATURE GRANULOCYTE (%) 0.5 % (0.0-0.7); INSTRUMENT ABS NEUTROPHIL CT 4.4 K/uL; LYMPHOCYTE COUNT 0.6 K/uL (1.0-2.8); MCH 30.1 PG (29.0-34.0); MCHC 32.4 G/DL (30.0-36.0); MONOCYTE (%) 6.5 % (3-12); MONOCYTE COUNT 0.4 K/uL (0-0.8); NEUTROPHIL (%) 78.7 % (45-76); NEUTROPHIL COUNT 4.4 K/uL (1.8-6.4); NRBC (%) 0.7 /100 WBC (0-0); PLATELET COUNT 272 K/uL (156-360); RBC DIS.WIDTH-SD 75.5 % (39-53); RED BLOOD COUNT 3.02 M/uL (3.80-5.20)
[2016-10-13 06:47] LABS: WHITE BLOOD COUNT 5.5 K/uL (4.1-10.2)
[2016-10-13 06:54] LABS: ANION GAP 4 MEQ/L (2-14); CHLORIDE 108 MEQ/L (99-109); GFR ESTIMATE (CALCULATED) > 59 mL/min/; GLUCOSE 223 mg/dL (70-99); POTASSIUM 3.6 MEQ/L (3.7-5.4); SAMPLE HEMOLYSIS CHECK 0; SAMPLE ICTERIC CHECK 0; SAMPLE LIPEMIA CHECK 0; SODIUM 147 MEQ/L (136-147); UREA NITROGEN (BUN) 7 mg/dL (9-23)
[2016-10-13 07:36] VITALS: BP 114/57
[2016-10-13 07:57] LABS: POINT-OF-CARE METER ID UU14174225
[2016-10-13 11:09] VITALS: BP 176/79
[2016-10-13 15:30] VITALS: BP 110/58
[2016-10-13 20:05] VITALS: BP 106/48
[2016-10-13 21:14] LABS: POINT-OF-CARE USER ID BHSKTD
[2016-10-13 21:50] LABS: BASE EXCESS 17.9 mEq/L (-3 to +3); BICARBONATE 42.6 mEq/L (22-26); CARBOXY HGB 1.7 % (0-5); METHEMOGLOBIN 1.5 % (0-1.5); PCO2 51 mm Hg (35-45); PO2 50 mm Hg (80-100)
[2016-10-13 21:51] LABS: COMMENTS - BLOOD GASES A+C+; DEVICE HFNC; O2 FLOW 6 L/MIN; SITE RR; pH 7.53 (7.35-7.45)
[2016-10-14 00:15] VITALS: BP 111/76
[2016-10-14 03:31] VITALS: BP 136/68
[2016-10-14 07:11] LABS: HEMATOCRIT 31.5 % (36.0-46.0); MCH 29.4 PG (29.0-34.0); MCHC 31.1 G/DL (30.0-36.0); MCV 94.6 FL (83-99); MEAN PLAT.VOLUME 10.6 uM^3 (9.5-12.4); PLATELET COUNT 244 K/uL (156-360); RBC DIS.WIDTH-CV 21.7 % (11.8-14.6); RBC DIS.WIDTH-SD 75.7 % (39-53); RED BLOOD COUNT 3.33 M/uL (3.80-5.20); WHITE BLOOD COUNT 4.2 K/uL (4.1-10.2)
[2016-10-14 07:46] VITALS: BP 110/70
[2016-10-14 08:00] LABS: ANION GAP 6 MEQ/L (2-14); CHLORIDE 110 MEQ/L (99-109); GFR ESTIMATE (CALCULATED) > 59 mL/min/; GLUCOSE 183 mg/dL (70-99); MAGNESIUM 2.2 mg/dl (1.3-2.7); POTASSIUM 3.7 MEQ/L (3.7-5.4); SAMPLE HEMOLYSIS CHECK 0; SAMPLE ICTERIC CHECK 0; SAMPLE LIPEMIA CHECK 0; SODIUM 149 MEQ/L (136-147); UREA NITROGEN (BUN) 9 mg/dL (9-23)
[2016-10-14 08:13] LABS: EOSINOPHIL (%) 4.5 % (0-5); EOSINOPHIL COUNT 0.2 K/uL (0-0.3); IMMATURE GRANULOCYTE (%) 0.5 % (0.0-0.7); LYMPHOCYTE COUNT 0.6 K/uL (1.0-2.8); MONOCYTE (%) 9.7 % (3-12); MONOCYTE COUNT 0.4 K/uL (0-0.8); NEUTROPHIL (%) 70.2 % (45-76)
[2016-10-14 09:46] LABS: BICARBONATE 35.8 mEq/L (22-26); CARBOXY HGB 1.5 % (0-5); METHEMOGLOBIN 1.5 % (0-1.5); PCO2 54 mm Hg (35-45)
[2016-10-14 09:47] LABS: COMMENTS - BLOOD GASES A+C+; DEVICE NCH; O2 FLOW 6 L/MIN; PO2 86 mm Hg (80-100); SITE LR; TOTAL RESP RATE 24 resp/min; pH 7.43 (7.35-7.45)
[2016-10-14 12:12] VITALS: BP 110/60
[2016-10-14 15:02] VITALS: BP 110/58
[2016-10-14 16:49] LABS: POINT-OF-CARE METER ID UU14174225
[2016-10-14 17:44] LABS: POINT-OF-CARE METER ID UU14188625
[2016-10-14 19:58] VITALS: BP 121/60
[2016-10-15] VITALS: BP 121/58
[2016-10-15 04:00] VITALS: BP 118/62
[2016-10-15 06:55] LABS: HEMATOCRIT 28.9 % (36.0-46.0); MCH 28.8 PG (29.0-34.0); MCHC 30.4 G/DL (30.0-36.0); MCV 94.4 FL (83-99); MEAN PLAT.VOLUME 11.1 uM^3 (9.5-12.4); PLATELET COUNT 247 K/uL (156-360); RBC DIS.WIDTH-CV 22.1 % (11.8-14.6); RBC DIS.WIDTH-SD 76.1 % (39-53); RED BLOOD COUNT 3.06 M/uL (3.80-5.20); WHITE BLOOD COUNT 3.8 K/uL (4.1-10.2)
[2016-10-15 07:27] LABS: POINT-OF-CARE METER ID UU14174225; POINT-OF-CARE USER ID BHSTSA
[2016-10-15 07:58] VITALS: BP 120/60
[2016-10-15 08:20] LABS: CHLORIDE 113 mEq/L (99-109); POTASSIUM 3.7 mEq/L (3.7-5.4); SODIUM 150 mEq/L (136-147)
[2016-10-15 08:21] LABS: MAGNESIUM 2.3 mg/dL (1.3-2.7)
[2016-10-15 08:23] LABS: GLUCOSE 139 mg/dL (70-99)
[2016-10-15 08:24] LABS: ANION GAP 8 MEQ/L (2-14); TOTAL BILIRUBIN 0.3 mg/dL (0.0-1.0)
[2016-10-15 08:26] LABS: ALKALINE PHOSPHATASE 45 IU/L (3-129)
[2016-10-15 08:27] LABS: GFR ESTIMATE (CALCULATED) > 59 mL/min/
[2016-10-15 08:28] LABS: DIRECT BILIRUBIN 0.2 mg/dL (0.0-0.3); UREA NITROGEN (BUN) 13 mg/dL (9-23)
[2016-10-15 10:14] LABS: EOSINOPHIL (%) 4.5 % (0-5); EOSINOPHIL COUNT 0.2 K/uL (0-0.3); IMMATURE GRANULOCYTE (%) 0.5 % (0.0-0.7); INSTRUMENT ABS NEUTROPHIL CT 2.7 K/uL; LYMPHOCYTE COUNT 0.5 K/uL (1.0-2.8); MONOCYTE (%) 9.8 % (3-12); MONOCYTE COUNT 0.4 K/uL (0-0.8); NEUTROPHIL (%) 70.2 % (45-76); NEUTROPHIL COUNT 2.7 K/uL (1.8-6.4)
[2016-10-15 11:13] VITALS: BP 140/62
[2016-10-15 13:48] LABS: CHLORIDE 110 mEq/L (99-109); POTASSIUM 3.5 mEq/L (3.7-5.4); SODIUM 149 mEq/L (136-147)
[2016-10-15 13:50] LABS: GLUCOSE 156 mg/dL (70-99)
[2016-10-15 13:51] LABS: ANION GAP 7 MEQ/L (2-14)
[2016-10-15 13:53] LABS: GFR ESTIMATE (CALCULATED) > 59 mL/min/
[2016-10-15 13:54] LABS: UREA NITROGEN (BUN) 14 mg/dL (9-23)
[2016-10-15 15:37] VITALS: BP 116/60
[2016-10-15 20:00] VITALS: BP 116/48
[2016-10-15 20:56] LABS: POINT-OF-CARE METER ID UU14174225
[2016-10-16] VITALS: BP 115/46
[2016-10-16 04:00] VITALS: BP 112/50
[2016-10-16 07:09] LABS: ANION GAP 5 MEQ/L (2-14); CHLORIDE 108 MEQ/L (99-109); GFR ESTIMATE (CALCULATED) > 59 mL/min/; GLUCOSE 135 mg/dL (70-99); MAGNESIUM 2.1 mg/dl (1.3-2.7); POTASSIUM 3.9 MEQ/L (3.7-5.4); SAMPLE HEMOLYSIS CHECK 0; SAMPLE ICTERIC CHECK 0; SAMPLE LIPEMIA CHECK 0; SODIUM 147 MEQ/L (136-147); UREA NITROGEN (BUN) 17 mg/dL (9-23)
[2016-10-16 07:12] LABS: MCH 29.4 PG (29.0-34.0); MCHC 31.5 G/DL (30.0-36.0); MCV 93.4 FL (83-99); MEAN PLAT.VOLUME 11.4 uM^3 (9.5-12.4); PLATELET COUNT 215 K/uL (156-360); RBC DIS.WIDTH-CV 21.5 % (11.8-14.6); RBC DIS.WIDTH-SD 74.4 % (39-53); RED BLOOD COUNT 2.89 M/uL (3.80-5.20)
[2016-10-16 07:27] LABS: EOSINOPHIL (%) 4.8 % (0-5); EOSINOPHIL COUNT 0.2 K/uL (0-0.3); IMMATURE GRANULOCYTE (%) 0.6 % (0.0-0.7); INSTRUMENT ABS NEUTROPHIL CT 3.4 K/uL; LYMPHOCYTE COUNT 0.9 K/uL (1.0-2.8); MONOCYTE (%) 8.7 % (3-12); MONOCYTE COUNT 0.4 K/uL (0-0.8); NEUTROPHIL (%) 68.2 % (45-76); NEUTROPHIL COUNT 3.4 K/uL (1.8-6.4)
[2016-10-16 07:54] VITALS: BP 120/60
[2016-10-16 11:27] VITALS: BP 110/60
[2016-10-16 15:50] VITALS: BP 110/60
[2016-10-16 19:23] VITALS: BP 110/60
[2016-10-17 00:35] VITALS: BP 113/64
[2016-10-17 06:36] LABS: HEMATOCRIT 24.3 % (36.0-46.0); MCH 29.8 PG (29.0-34.0); MCHC 31.7 G/DL (30.0-36.0); MCV 94.2 FL (83-99); MEAN PLAT.VOLUME 11.6 uM^3 (9.5-12.4); PLATELET COUNT 203 K/uL (156-360); RBC DIS.WIDTH-CV 21.2 % (11.8-14.6); RBC DIS.WIDTH-SD 72.5 % (39-53); RED BLOOD COUNT 2.58 M/uL (3.80-5.20); WHITE BLOOD COUNT 4.8 K/uL (4.1-10.2)
[2016-10-17 07:02] LABS: ANION GAP 5 MEQ/L (2-14); CHLORIDE 106 MEQ/L (99-109); GFR ESTIMATE (CALCULATED) > 59 mL/min/; POTASSIUM 4.4 MEQ/L (3.7-5.4); SAMPLE HEMOLYSIS CHECK 0; SAMPLE ICTERIC CHECK 0; SAMPLE LIPEMIA CHECK 0; SODIUM 144 MEQ/L (136-147); UREA NITROGEN (BUN) 22 mg/dL (9-23)
[2016-10-17 07:08] LABS: GLUCOSE 99 mg/dL (70-99)
[2016-10-17 08:41] VITALS: BP 116/64
[2016-10-17 08:55] LABS: ABS NEUTROPHIL COUNT 3.6; ATYPICAL LYMPHOCYTE 2.6 %; BAND NEUTROPHILS 5.3 % (0-8.0); BASOPHILS 1.8 %; EOSINOPHIL ABS CT 0.1; EOSINOPHILS 1.7 % (0-5.0); INSTRUMENT ABS NEUTROPHIL CT 3.1 K/uL; LYMPHOCYTES 11.4 % (15.0-45.0); METAMYELOCYTES 0.9 %; SEG.NEUTROPHILS 70.2 % (46.0-76.0)
[2016-10-17 12:54] VITALS: BP 110/65
[2016-10-17 17:01] VITALS: BP 117/66
[2016-10-17 20:51] VITALS: BP 115/56
[2016-10-17 21:41] LABS: POINT-OF-CARE METER ID UU14174225
[2016-10-18 00:21] VITALS: BP 95/55
[2016-10-18 04:09] VITALS: BP 120/59
[2016-10-18 07:07] LABS: ALKALINE PHOSPHATASE 72 IU/L (3-129); ANION GAP 3 MEQ/L (2-14); CHLORIDE 103 MEQ/L (99-109); DIRECT BILIRUBIN 0.1 mg/dL (0.0-0.3); GFR ESTIMATE (CALCULATED) > 59 mL/min/; GLUCOSE 148 mg/dL (70-99); MAGNESIUM 1.9 mg/dl (1.3-2.7); POTASSIUM 4.8 MEQ/L (3.7-5.4); PREALBUMIN 8.8 mg/dL (10-40); SAMPLE HEMOLYSIS CHECK 0; SAMPLE ICTERIC CHECK 0; SAMPLE LIPEMIA CHECK 0; SODIUM 137 MEQ/L (136-147); TOTAL BILIRUBIN 0.4 MG/DL (0.0-1.0); TRIGLYCERIDES 153 MG/DL (Normal: <150); UREA NITROGEN (BUN) 23 mg/dL (9-23)
[2016-10-18 08:09] VITALS: BP 109/52
[2016-10-18 08:41] LABS: POINT-OF-CARE METER ID UU14188625
[2016-10-18 10:48] LABS: EOSINOPHIL (%) 3.5 % (0-5); EOSINOPHIL COUNT 0.2 K/uL (0-0.3); HEMATOCRIT 26.5 % (36.0-46.0); IMMATURE GRANULOCYTE (%) 1.4 % (0.0-0.7); IMMATURE GRANULOCYTE COUNT 0.1 K/uL; INSTRUMENT ABS NEUTROPHIL CT 3.1 K/uL; MCH 30.1 PG (29.0-34.0); MCHC 32.5 G/DL (30.0-36.0); MCV 92.7 FL (83-99); MEAN PLAT.VOLUME 11.6 uM^3 (9.5-12.4); MONOCYTE (%) 9.5 % (3-12); MONOCYTE COUNT 0.5 K/uL (0-0.8); NEUTROPHIL (%) 64.6 % (45-76); NEUTROPHIL COUNT 3.1 K/uL (1.8-6.4); PLATELET COUNT 240 K/uL (156-360); RBC DIS.WIDTH-CV 20.3 % (11.8-14.6); RBC DIS.WIDTH-SD 68.5 % (39-53); RED BLOOD COUNT 2.86 M/uL (3.80-5.20); WHITE BLOOD COUNT 4.9 K/uL (4.1-10.2)
[2016-10-18 13:30] LABS: POINT-OF-CARE METER ID UU14188625
[2016-10-18 13:39] VITALS: BP 116/54
[2016-10-18 19:39] VITALS: BP 111/59
[2016-10-18 21:41] LABS: POINT-OF-CARE METER ID UU14174225
[2016-10-19 00:46] VITALS: BP 101/55
[2016-10-19 04:25] VITALS: BP 106/61
[2016-10-19 08:00] VITALS: BP 134/58
[2016-10-19 08:43] LABS: POINT-OF-CARE METER ID UU14174225
[2016-10-19 09:29] LABS: ANION GAP 6 MEQ/L (2-14); CHLORIDE 101 MEQ/L (99-109); GFR ESTIMATE (CALCULATED) > 59 mL/min/; GLUCOSE 123 mg/dL (70-99); SAMPLE HEMOLYSIS CHECK 0; SAMPLE ICTERIC CHECK 0; SAMPLE LIPEMIA CHECK 0; SODIUM 136 MEQ/L (136-147); UREA NITROGEN (BUN) 29 mg/dL (9-23)
[2016-10-19 12:39] LABS: POINT-OF-CARE METER ID UU14174225
[2016-10-19 15:19] LABS: HEMATOCRIT 25.6 % (36.0-46.0); MCH 30.8 PG (29.0-34.0); MCHC 32.8 G/DL (30.0-36.0); MCV 93.8 FL (83-99); MEAN PLAT.VOLUME 11.8 uM^3 (9.5-12.4); PLATELET COUNT 278 K/uL (156-360); RBC DIS.WIDTH-CV 20.2 % (11.8-14.6); RBC DIS.WIDTH-SD 69.1 % (39-53); RED BLOOD COUNT 2.73 M/uL (3.80-5.20); WHITE BLOOD COUNT 5.7 K/uL (4.1-10.2)
[2016-10-19 19:48] VITALS: BP 133/56
[2016-10-19 23:11] VITALS: BP 108/55
[2016-10-20] VITALS (9 sets, daily range): BP systolic 104–170; BP diastolic 53–96
[2016-10-20 07:27] LABS: POINT-OF-CARE METER ID UU14174225
[2016-10-20 08:52] LABS: ANION GAP 4 MEQ/L (2-14); CHLORIDE 106 MEQ/L (99-109); GFR ESTIMATE (CALCULATED) > 59 mL/min/; GLUCOSE 136 mg/dL (70-99); MAGNESIUM 2.2 mg/dl (1.3-2.7); POTASSIUM 4.2 MEQ/L (3.7-5.4); SAMPLE HEMOLYSIS CHECK 0; SAMPLE ICTERIC CHECK 0; SAMPLE LIPEMIA CHECK 0; SODIUM 140 MEQ/L (136-147); UREA NITROGEN (BUN) 30 mg/dL (9-23)
[2016-10-20 12:08] LABS: POINT-OF-CARE METER ID UU14174225
[2016-10-20 21:21] LABS: POINT-OF-CARE METER ID UU14174217
[2016-10-20 22:02] LABS: METH RESISTANT S AUREUS PCR NEGATIVE (NEGATIVE)
[2016-10-20 22:18] LABS: PROBE CHECK PASS; SPECIMEN PROCESSING CONTROL PASS
[2016-10-21] VITALS (25 sets, daily range): BP systolic 94–141; BP diastolic 43–79
[2016-10-21 06:25] LABS: EOSINOPHIL (%) 0.1 % (0-5); IMMATURE GRANULOCYTE (%) 1.4 % (0.0-0.7); IMMATURE GRANULOCYTE COUNT 0.2 K/uL; INSTRUMENT ABS NEUTROPHIL CT 11.8 K/uL; LYMPHOCYTE COUNT 0.8 K/uL (1.0-2.8); MCHC 33.2 G/DL (30.0-36.0); MCV 90.3 FL (83-99); MEAN PLAT.VOLUME 11.7 uM^3 (9.5-12.4); MONOCYTE (%) 2.9 % (3-12); MONOCYTE COUNT 0.4 K/uL (0-0.8); NEUTROPHIL (%) 89.2 % (45-76); NEUTROPHIL COUNT 11.8 K/uL (1.8-6.4); PLATELET COUNT 297 K/uL (156-360); RBC DIS.WIDTH-CV 18.2 % (11.8-14.6)
[2016-10-21 06:29] LABS: WHITE BLOOD COUNT 13.3 K/uL (4.1-10.2)
[2016-10-21 06:44] LABS: ANION GAP 7 MEQ/L (2-14); CHLORIDE 109 MEQ/L (99-109); CREATINE KINASE 11 IU/L (1-294); GFR ESTIMATE (CALCULATED) > 59 mL/min/; POTASSIUM 3.7 MEQ/L (3.7-5.4); SAMPLE HEMOLYSIS CHECK 0; SAMPLE ICTERIC CHECK 0; SAMPLE LIPEMIA CHECK 0; SODIUM 141 MEQ/L (136-147); TRIGLYCERIDES 125 MG/DL (Normal: <150); UREA NITROGEN (BUN) 40 mg/dL (9-23)
[2016-10-21 06:46] LABS: GLUCOSE 244 mg/dL (70-99)
[2016-10-21 12:18] LABS: POINT-OF-CARE METER ID UU13113803
[2016-10-22] VITALS (30 sets, daily range): BP systolic 102–152; BP diastolic 42–128
[2016-10-22 06:12] LABS: POINT-OF-CARE METER ID UU14174217
[2016-10-22 06:28] LABS: EOSINOPHIL (%) 1.5 % (0-5); EOSINOPHIL COUNT 0.2 K/uL (0-0.3); HEMATOCRIT 21.5 % (36.0-46.0); IMMATURE GRANULOCYTE (%) 2.1 % (0.0-0.7); IMMATURE GRANULOCYTE COUNT 0.2 K/uL; INSTRUMENT ABS NEUTROPHIL CT 9.2 K/uL; MCH 30.3 PG (29.0-34.0); MCHC 33.5 G/DL (30.0-36.0); MCV 90.3 FL (83-99); MEAN PLAT.VOLUME 11.6 uM^3 (9.5-12.4); MONOCYTE (%) 5.1 % (3-12); MONOCYTE COUNT 0.6 K/uL (0-0.8); NEUTROPHIL (%) 82.6 % (45-76); NEUTROPHIL COUNT 9.2 K/uL (1.8-6.4); PLATELET COUNT 275 K/uL (156-360); RBC DIS.WIDTH-CV 18.7 % (11.8-14.6); RBC DIS.WIDTH-SD 61.1 % (39-53); WHITE BLOOD COUNT 11.1 K/uL (4.1-10.2)
[2016-10-22 06:30] LABS: RED BLOOD COUNT 2.38 M/uL (3.80-5.20)
[2016-10-22 06:53] LABS: ANION GAP 7 MEQ/L (2-14); CHLORIDE 110 MEQ/L (99-109); CREATINE KINASE 13 IU/L (1-294); GFR ESTIMATE (CALCULATED) > 59 mL/min/; GLUCOSE 143 mg/dL (70-99); SAMPLE HEMOLYSIS CHECK 0; SAMPLE ICTERIC CHECK 0; SAMPLE LIPEMIA CHECK 0; SODIUM 142 MEQ/L (136-147); UREA NITROGEN (BUN) 29 mg/dL (9-23)
[2016-10-22 06:54] LABS: POTASSIUM 2.8 MEQ/L (3.7-5.4)
[2016-10-22 14:29] LABS: ANION GAP 6 MEQ/L (2-14); CHLORIDE 112 MEQ/L (99-109); GFR ESTIMATE (CALCULATED) > 59 mL/min/; GLUCOSE 142 mg/dL (70-99); SAMPLE HEMOLYSIS CHECK 0; SAMPLE ICTERIC CHECK 0; SAMPLE LIPEMIA CHECK 0; SODIUM 144 MEQ/L (136-147); UREA NITROGEN (BUN) 27 mg/dL (9-23)
[2016-10-22 16:03] LABS: HEMATOCRIT 29.4 % (36.0-46.0); MCH 30.3 PG (29.0-34.0); MCHC 33.7 G/DL (30.0-36.0); MCV 89.9 FL (83-99); MEAN PLAT.VOLUME 11.4 uM^3 (9.5-12.4); PLATELET COUNT 268 K/uL (156-360); RBC DIS.WIDTH-CV 17.8 % (11.8-14.6); RBC DIS.WIDTH-SD 58.7 % (39-53)
[2016-10-22 16:06] LABS: RED BLOOD COUNT 3.27 M/uL (3.80-5.20)
[2016-10-23] VITALS (23 sets, daily range): BP systolic 98–136; BP diastolic 46–64
[2016-10-23 00:53] LABS: POINT-OF-CARE METER ID UU13113731
[2016-10-23 05:32] LABS: POINT-OF-CARE METER ID UU13113731
[2016-10-23 06:06] LABS: EOSINOPHIL (%) 3.3 % (0-5); EOSINOPHIL COUNT 0.4 K/uL (0-0.3); HEMATOCRIT 30.3 % (36.0-46.0); IMMATURE GRANULOCYTE (%) 2.5 % (0.0-0.7); IMMATURE GRANULOCYTE COUNT 0.3 K/uL; INSTRUMENT ABS NEUTROPHIL CT 8.4 K/uL; LYMPHOCYTE COUNT 0.9 K/uL (1.0-2.8); MCH 29.6 PG (29.0-34.0); MCHC 33.3 G/DL (30.0-36.0); MCV 88.9 FL (83-99); MEAN PLAT.VOLUME 11.4 uM^3 (9.5-12.4); MONOCYTE (%) 5.3 % (3-12); MONOCYTE COUNT 0.6 K/uL (0-0.8); NEUTROPHIL (%) 80.1 % (45-76); NEUTROPHIL COUNT 8.4 K/uL (1.8-6.4); PLATELET COUNT 306 K/uL (156-360); RBC DIS.WIDTH-CV 17.7 % (11.8-14.6); RBC DIS.WIDTH-SD 57.1 % (39-53); RED BLOOD COUNT 3.41 M/uL (3.80-5.20); WHITE BLOOD COUNT 10.5 K/uL (4.1-10.2)
[2016-10-23 06:33] LABS: ANION GAP 6 MEQ/L (2-14); CHLORIDE 112 MEQ/L (99-109); GFR ESTIMATE (CALCULATED) > 59 mL/min/; GLUCOSE 128 mg/dL (70-99); POTASSIUM 3.7 MEQ/L (3.7-5.4); SAMPLE HEMOLYSIS CHECK 0; SAMPLE ICTERIC CHECK 0; SAMPLE LIPEMIA CHECK 0; SODIUM 145 MEQ/L (136-147); UREA NITROGEN (BUN) 27 mg/dL (9-23)
[2016-10-23 12:11] LABS: POINT-OF-CARE METER ID UU13113803
[2016-10-23 17:43] LABS: POINT-OF-CARE METER ID UU13113803
[2016-10-24] VITALS (23 sets, daily range): BP systolic 95–136; BP diastolic 42–71
[2016-10-24 00:33] LABS: POINT-OF-CARE METER ID UU13113803
[2016-10-24 06:08] LABS: EOSINOPHIL COUNT 0.4 K/uL (0-0.3); HEMATOCRIT 31.4 % (36.0-46.0); IMMATURE GRANULOCYTE (%) 3.6 % (0.0-0.7); IMMATURE GRANULOCYTE COUNT 0.4 K/uL; INSTRUMENT ABS NEUTROPHIL CT 8.2 K/uL; LYMPHOCYTE COUNT 0.8 K/uL (1.0-2.8); MCH 29.7 PG (29.0-34.0); MCHC 32.5 G/DL (30.0-36.0); MCV 91.3 FL (83-99); MEAN PLAT.VOLUME 11.5 uM^3 (9.5-12.4); MONOCYTE (%) 5.9 % (3-12); MONOCYTE COUNT 0.6 K/uL (0-0.8); NEUTROPHIL (%) 78.2 % (45-76); NEUTROPHIL COUNT 8.2 K/uL (1.8-6.4); PLATELET COUNT 354 K/uL (156-360); RBC DIS.WIDTH-CV 17.6 % (11.8-14.6); RBC DIS.WIDTH-SD 58.4 % (39-53); RED BLOOD COUNT 3.44 M/uL (3.80-5.20); WHITE BLOOD COUNT 10.5 K/uL (4.1-10.2)
[2016-10-24 06:26] LABS: ANION GAP 6 MEQ/L (2-14); CHLORIDE 112 MEQ/L (99-109); GFR ESTIMATE (CALCULATED) > 59 mL/min/; GLUCOSE 167 mg/dL (70-99); POTASSIUM 4.1 MEQ/L (3.7-5.4); SAMPLE HEMOLYSIS CHECK 0; SAMPLE ICTERIC CHECK 0; SAMPLE LIPEMIA CHECK 0; SODIUM 144 MEQ/L (136-147); UREA NITROGEN (BUN) 33 mg/dL (9-23)
[2016-10-24 11:40] LABS: BASE EXCESS 3.6 mEq/L (-3 to +3); CARBOXY HGB 3.2 % (0-5); METHEMOGLOBIN 0.1 % (0-1.5); PO2 101 mm Hg (80-100); pH 7.42 (7.35-7.45)
[2016-10-24 11:42] LABS: BICARBONATE 28.5 mEq/L (22-26); PCO2 44 mm Hg (35-45)
[2016-10-24 11:43] LABS: COMMENTS - BLOOD GASES A+C+; DEVICE NC; O2 FLOW 3 L/MIN; SITE RR
[2016-10-24 12:47] LABS: POINT-OF-CARE METER ID UU13113731
[2016-10-24 17:49] LABS: POINT-OF-CARE METER ID UU13113731
[2016-10-24 23:30] LABS: POINT-OF-CARE METER ID UU13113731
[2016-10-25] VITALS (19 sets, daily range): BP systolic 94–126; BP diastolic 40–57
[2016-10-25 06:11] LABS: EOSINOPHIL COUNT 0.5 K/uL (0-0.3); HEMATOCRIT 32.3 % (36.0-46.0); IMMATURE GRANULOCYTE (%) 3.6 % (0.0-0.7); IMMATURE GRANULOCYTE COUNT 0.4 K/uL; INSTRUMENT ABS NEUTROPHIL CT 8.7 K/uL; LYMPHOCYTE COUNT 0.8 K/uL (1.0-2.8); MCH 30.3 PG (29.0-34.0); MCHC 32.2 G/DL (30.0-36.0); MCV 94.2 FL (83-99); MEAN PLAT.VOLUME 11.4 uM^3 (9.5-12.4); MONOCYTE (%) 6.8 % (3-12); MONOCYTE COUNT 0.8 K/uL (0-0.8); NEUTROPHIL (%) 77.8 % (45-76); NEUTROPHIL COUNT 8.7 K/uL (1.8-6.4); PLATELET COUNT 360 K/uL (156-360); RBC DIS.WIDTH-CV 17.2 % (11.8-14.6); RBC DIS.WIDTH-SD 59.5 % (39-53); RED BLOOD COUNT 3.43 M/uL (3.80-5.20); WHITE BLOOD COUNT 11.2 K/uL (4.1-10.2)
[2016-10-25 06:18] LABS: POINT-OF-CARE METER ID UU13113731
[2016-10-25 06:35] LABS: ALKALINE PHOSPHATASE 258 IU/L (3-129); ANION GAP 3 MEQ/L (2-14); CHLORIDE 113 MEQ/L (99-109); DIRECT BILIRUBIN 0.2 mg/dL (0.0-0.3); GLUCOSE 152 mg/dL (70-99); POTASSIUM 4.4 MEQ/L (3.7-5.4); SAMPLE HEMOLYSIS CHECK 0; SAMPLE ICTERIC CHECK 0; SAMPLE LIPEMIA CHECK 0; SODIUM 142 MEQ/L (136-147); TOTAL BILIRUBIN 0.7 MG/DL (0.0-1.0); TRIGLYCERIDES 114 MG/DL (Normal: <150); UREA NITROGEN (BUN) 34 mg/dL (9-23)
[2016-10-25 06:37] LABS: GFR ESTIMATE (CALCULATED) > 59 mL/min/; MAGNESIUM 2.4 mg/dl (1.3-2.7)
[2016-10-25 12:02] LABS: POINT-OF-CARE METER ID UU13113731
[2016-10-25 17:37] LABS: POINT-OF-CARE METER ID UU13113731
[2016-10-26] VITALS: BP 113/53
[2016-10-26 04:00] VITALS: BP 95/37
[2016-10-26 06:37] LABS: ANION GAP 7 MEQ/L (2-14); CHLORIDE 111 MEQ/L (99-109); GFR ESTIMATE (CALCULATED) > 59 mL/min/; GLUCOSE 151 mg/dL (70-99); MAGNESIUM 2.1 mg/dl (1.3-2.7); POTASSIUM 4.8 MEQ/L (3.7-5.4); SAMPLE HEMOLYSIS CHECK 0; SAMPLE ICTERIC CHECK 0; SAMPLE LIPEMIA CHECK 0; SODIUM 144 MEQ/L (136-147); UREA NITROGEN (BUN) 33 mg/dL (9-23)
[2016-10-26 08:00] VITALS: BP 112/53
[2016-10-26 12:00] VITALS: BP 120/55
[2016-10-26 12:17] LABS: POINT-OF-CARE METER ID UU13113803
[2016-10-26 16:00] VITALS: BP 126/51
[2016-10-26 17:33] LABS: POINT-OF-CARE METER ID UU13113803
[2016-10-26 20:00] VITALS: BP 112/48
[2016-10-27] VITALS: BP 106/44
[2016-10-27 00:19] LABS: POINT-OF-CARE METER ID UU13113803
[2016-10-27 04:00] VITALS: BP 112/47
[2016-10-27 05:37] LABS: HEMATOCRIT 32.1 % (36.0-46.0); MCH 29.7 PG (29.0-34.0); MCHC 31.8 G/DL (30.0-36.0); MCV 93.6 FL (83-99); MEAN PLAT.VOLUME 11.6 uM^3 (9.5-12.4); PLATELET COUNT 433 K/uL (156-360); RBC DIS.WIDTH-CV 16.7 % (11.8-14.6); RBC DIS.WIDTH-SD 57.6 % (39-53); RED BLOOD COUNT 3.43 M/uL (3.80-5.20); WHITE BLOOD COUNT 12.3 K/uL (4.1-10.2)
[2016-10-27 06:03] LABS: ANION GAP 5 MEQ/L (2-14); CHLORIDE 109 MEQ/L (99-109); GFR ESTIMATE (CALCULATED) > 59 mL/min/; GLUCOSE 166 mg/dL (70-99); POTASSIUM 4.5 MEQ/L (3.7-5.4); SAMPLE HEMOLYSIS CHECK 0; SAMPLE ICTERIC CHECK 0; SAMPLE LIPEMIA CHECK 0; SODIUM 141 MEQ/L (136-147); UREA NITROGEN (BUN) 35 mg/dL (9-23)
[2016-10-27 08:00] VITALS: BP 116/46
[2016-10-27 11:30] LABS: POINT-OF-CARE METER ID UU14162636
[2016-10-27 12:00] VITALS: BP 0/0; BP 120/51
[2016-10-27 16:00] VITALS: BP 103/54
[2016-10-27 17:21] LABS: POINT-OF-CARE METER ID UU14162636
[2016-10-27 18:10] LABS: URINE UREA NITROGEN 13312 MG/24 HR
[2016-10-27 20:00] VITALS: BP 121/53
[2016-10-28] VITALS (7 sets, daily range): BP systolic 87–121; BP diastolic 44–54
[2016-10-28 01:47] LABS: POINT-OF-CARE METER ID UU14162636
[2016-10-28 05:46] LABS: HEMATOCRIT 32.2 % (36.0-46.0); MCH 29.6 PG (29.0-34.0); MCHC 31.4 G/DL (30.0-36.0); MCV 94.4 FL (83-99); MEAN PLAT.VOLUME 11.3 uM^3 (9.5-12.4); PLATELET COUNT 449 K/uL (156-360); RBC DIS.WIDTH-CV 16.7 % (11.8-14.6); RBC DIS.WIDTH-SD 58.1 % (39-53); RED BLOOD COUNT 3.41 M/uL (3.80-5.20); WHITE BLOOD COUNT 11.4 K/uL (4.1-10.2)
[2016-10-28 06:12] LABS: ANION GAP 5 MEQ/L (2-14); CHLORIDE 107 MEQ/L (99-109); GFR ESTIMATE (CALCULATED) > 59 mL/min/; GLUCOSE 151 mg/dL (70-99); MAGNESIUM 1.9 mg/dl (1.3-2.7); POTASSIUM 4.3 MEQ/L (3.7-5.4); SAMPLE HEMOLYSIS CHECK 0; SAMPLE ICTERIC CHECK 0; SAMPLE LIPEMIA CHECK 0; SODIUM 141 MEQ/L (136-147); UREA NITROGEN (BUN) 34 mg/dL (9-23)
[2016-10-28 12:04] LABS: POINT-OF-CARE METER ID UU14174217; POINT-OF-CARE USER ID NUTJLF39
[2016-10-28 17:31] LABS: POINT-OF-CARE METER ID UU14174217; POINT-OF-CARE USER ID NUTJLF39
[2016-10-29] VITALS: BP 124/60
[2016-10-29 00:22] LABS: POINT-OF-CARE METER ID UU13113731
[2016-10-29 05:38] LABS: POINT-OF-CARE METER ID UU14162636
[2016-10-29 06:51] LABS: HEMATOCRIT 32.1 % (36.0-46.0); MCH 30.2 PG (29.0-34.0); MCHC 32.1 G/DL (30.0-36.0); MCV 94.1 FL (83-99); MEAN PLAT.VOLUME 11.2 uM^3 (9.5-12.4); PLATELET COUNT 453 K/uL (156-360); RBC DIS.WIDTH-CV 16.4 % (11.8-14.6); RBC DIS.WIDTH-SD 57.1 % (39-53); RED BLOOD COUNT 3.41 M/uL (3.80-5.20)
[2016-10-29 07:35] LABS: ANION GAP 7 MEQ/L (2-14); CHLORIDE 107 MEQ/L (99-109); GFR ESTIMATE (CALCULATED) > 59 mL/min/; GLUCOSE 135 mg/dL (70-99); POTASSIUM 4.1 MEQ/L (3.7-5.4); SAMPLE HEMOLYSIS CHECK 0; SAMPLE ICTERIC CHECK 0; SAMPLE LIPEMIA CHECK 0; SODIUM 141 MEQ/L (136-147); UREA NITROGEN (BUN) 39 mg/dL (9-23)
[2016-10-29 08:20] VITALS: BP 114/53
[2016-10-29 10:00] VITALS: BP 123/56
[2016-10-29 12:00] VITALS: BP 113/51
[2016-10-29 13:36] LABS: POINT-OF-CARE METER ID UU14162636
[2016-10-29 16:00] VITALS: BP 110/46
[2016-10-29 17:14] LABS: POINT-OF-CARE METER ID UU14174217; POINT-OF-CARE USER ID 606021424
[2016-10-29 20:00] VITALS: BP 111/50
[2016-10-30] VITALS: BP 108/46
[2016-10-30 04:00] VITALS: BP 122/53
[2016-10-30 05:48] LABS: HEMATOCRIT 32.9 % (36.0-46.0); MCH 29.9 PG (29.0-34.0); MCV 96.5 FL (83-99); MEAN PLAT.VOLUME 11.4 uM^3 (9.5-12.4); PLATELET COUNT 436 K/uL (156-360); RBC DIS.WIDTH-CV 16.5 % (11.8-14.6); RBC DIS.WIDTH-SD 58.4 % (39-53); RED BLOOD COUNT 3.41 M/uL (3.80-5.20); WHITE BLOOD COUNT 12.3 K/uL (4.1-10.2)
[2016-10-30 06:25] LABS: ANION GAP 4 MEQ/L (2-14); CHLORIDE 106 MEQ/L (99-109); GFR ESTIMATE (CALCULATED) > 59 mL/min/; GLUCOSE 134 mg/dL (70-99); MAGNESIUM 2.1 mg/dl (1.3-2.7); SAMPLE HEMOLYSIS CHECK 0; SAMPLE ICTERIC CHECK 0; SAMPLE LIPEMIA CHECK 0; SODIUM 139 MEQ/L (136-147); UREA NITROGEN (BUN) 39 mg/dL (9-23)
[2016-10-30 07:33] LABS: INTACT PARATHYROID HORMONE 106 pg/mL (10-69)
[2016-10-30 08:00] VITALS: BP 124/51
[2016-10-30 11:50] LABS: POINT-OF-CARE METER ID UU14174217
[2016-10-30 12:00] VITALS: BP 91/38
[2016-10-30 16:00] VITALS: BP 109/53
[2016-10-30 17:02] LABS: POINT-OF-CARE METER ID UU14174217
[2016-10-30 20:00] VITALS: BP 117/46
[2016-10-30 22:29] LABS: POINT-OF-CARE USER ID RADDRS44
[2016-10-31] VITALS (7 sets, daily range): BP systolic 110–121; BP diastolic 43–76
[2016-10-31 06:33] LABS: ANION GAP 8 MEQ/L (2-14); CHLORIDE 103 MEQ/L (99-109); GFR ESTIMATE (CALCULATED) > 59 mL/min/; GLUCOSE 101 mg/dL (70-99); MAGNESIUM 2.3 mg/dl (1.3-2.7); SAMPLE HEMOLYSIS CHECK 0; SAMPLE ICTERIC CHECK 0; SAMPLE LIPEMIA CHECK 0; SODIUM 136 MEQ/L (136-147); UREA NITROGEN (BUN) 40 mg/dL (9-23)
[2016-10-31 06:34] LABS: HEMATOCRIT 36.2 % (36.0-46.0); MCH 30.2 PG (29.0-34.0); MCHC 31.8 G/DL (30.0-36.0); PLATELET COUNT 426 K/uL (156-360); RBC DIS.WIDTH-CV 16.4 % (11.8-14.6); RBC DIS.WIDTH-SD 57.6 % (39-53); RED BLOOD COUNT 3.81 M/uL (3.80-5.20)
[2016-10-31 06:34] LABS: POTASSIUM 4.9 MEQ/L (3.7-5.4)
[2016-10-31 12:39] LABS: POINT-OF-CARE METER ID UU13113731
[2016-10-31 17:30] LABS: POINT-OF-CARE METER ID UU13113731
[2016-10-31 21:27] LABS: POINT-OF-CARE METER ID UU13113803; POINT-OF-CARE USER ID RADDRS44
[2016-11-01] VITALS: BP 102/46
[2016-11-01 04:00] VITALS: BP 102/46
[2016-11-01 06:00] VITALS: BP 122/60
[2016-11-01 06:21] LABS: BASOPHIL COUNT 0.1 K/uL (0-0.1); EOSINOPHIL (%) 3.1 % (0-5); EOSINOPHIL COUNT 0.4 K/uL (0-0.3); HEMATOCRIT 29.8 % (36.0-46.0); IMMATURE GRANULOCYTE (%) 1.9 % (0.0-0.7); IMMATURE GRANULOCYTE COUNT 0.2 K/uL; INSTRUMENT ABS NEUTROPHIL CT 8.8 K/uL; LYMPHOCYTE COUNT 1.2 K/uL (1.0-2.8); MCH 30.4 PG (29.0-34.0); MCHC 31.9 G/DL (30.0-36.0); MCV 95.5 FL (83-99); MEAN PLAT.VOLUME 11.5 uM^3 (9.5-12.4); MONOCYTE (%) 7.7 % (3-12); MONOCYTE COUNT 0.9 K/uL (0-0.8); NEUTROPHIL (%) 76.5 % (45-76); NEUTROPHIL COUNT 8.8 K/uL (1.8-6.4); PLATELET COUNT 391 K/uL (156-360); RBC DIS.WIDTH-CV 16.2 % (11.8-14.6); RBC DIS.WIDTH-SD 56.9 % (39-53); RED BLOOD COUNT 3.12 M/uL (3.80-5.20); WHITE BLOOD COUNT 11.5 K/uL (4.1-10.2)
[2016-11-01 06:47] LABS: ANION GAP 5 MEQ/L (2-14); CHLORIDE 105 MEQ/L (99-109); GFR ESTIMATE (CALCULATED) > 59 mL/min/; PREALBUMIN 12.8 mg/dL (10-40); SAMPLE HEMOLYSIS CHECK 0; SAMPLE ICTERIC CHECK 0; SAMPLE LIPEMIA CHECK 0; SODIUM 136 MEQ/L (136-147); TRIGLYCERIDES 92 MG/DL (Normal: <150); UREA NITROGEN (BUN) 39 mg/dL (9-23)
[2016-11-01 06:48] LABS: ALKALINE PHOSPHATASE 176 IU/L (3-129); GLUCOSE 164 mg/dL (70-99); POTASSIUM 3.8 MEQ/L (3.7-5.4); TOTAL BILIRUBIN 0.3 MG/DL (0.0-1.0)
[2016-11-01 08:00] VITALS: BP 121/55
[2016-11-01 16:00] VITALS: BP 106/54
[2016-11-01 18:29] LABS: POINT-OF-CARE METER ID UU13113731
[2016-11-01 20:00] VITALS: BP 106/81
[2016-11-01 22:12] LABS: POINT-OF-CARE METER ID UU13113731
[2016-11-02] VITALS: BP 102/46
[2016-11-02 04:00] VITALS: BP 107/46
[2016-11-02 05:45] LABS: POINT-OF-CARE METER ID UU13113731
[2016-11-02 06:31] LABS: HEMATOCRIT 34.4 % (36.0-46.0); MCH 30.2 PG (29.0-34.0); MCHC 31.1 G/DL (30.0-36.0); MCV 97.2 FL (83-99); MEAN PLAT.VOLUME 11.5 uM^3 (9.5-12.4); PLATELET COUNT 356 K/uL (156-360); RBC DIS.WIDTH-CV 16.1 % (11.8-14.6); RBC DIS.WIDTH-SD 58.2 % (39-53); RED BLOOD COUNT 3.54 M/uL (3.80-5.20); WHITE BLOOD COUNT 11.8 K/uL (4.1-10.2)
[2016-11-02 07:00] LABS: ANION GAP 9 MEQ/L (2-14); CHLORIDE 104 MEQ/L (99-109); GFR ESTIMATE (CALCULATED) > 59 mL/min/; GLUCOSE 134 mg/dL (70-99); MAGNESIUM 1.9 mg/dl (1.3-2.7); SAMPLE HEMOLYSIS CHECK 0; SAMPLE ICTERIC CHECK 0; SAMPLE LIPEMIA CHECK 0; SODIUM 136 MEQ/L (136-147); UREA NITROGEN (BUN) 35 mg/dL (9-23)
[2016-11-02 08:00] VITALS: BP 92/54
[2016-11-02 11:45] VITALS: BP 128/60
[2016-11-02 11:52] LABS: POINT-OF-CARE METER ID UU14174217
[2016-11-02 19:10] VITALS: BP 108/58
[2016-11-02 21:44] LABS: POINT-OF-CARE METER ID UU14162508
[2016-11-02 23:48] VITALS: BP 100/52
[2016-11-03 03:15] VITALS: BP 100/50
[2016-11-03 06:43] LABS: HEMATOCRIT 27.8 % (36.0-46.0); MCH 30.2 PG (29.0-34.0); MCHC 31.7 G/DL (30.0-36.0); MCV 95.5 FL (83-99); MEAN PLAT.VOLUME 11.3 uM^3 (9.5-12.4); PLATELET COUNT 339 K/uL (156-360); RBC DIS.WIDTH-CV 16.2 % (11.8-14.6); RBC DIS.WIDTH-SD 56.8 % (39-53); RED BLOOD COUNT 2.91 M/uL (3.80-5.20)
[2016-11-03 06:44] LABS: WHITE BLOOD COUNT 7.7 K/uL (4.1-10.2)
[2016-11-03 06:51] LABS: POINT-OF-CARE METER ID UU14162508
[2016-11-03 07:09] LABS: ANION GAP 5 MEQ/L (2-14); CHLORIDE 108 MEQ/L (99-109); GFR ESTIMATE (CALCULATED) > 59 mL/min/; GLUCOSE 140 mg/dL (70-99); MAGNESIUM 1.8 mg/dl (1.3-2.7); POTASSIUM 3.6 MEQ/L (3.7-5.4); SAMPLE HEMOLYSIS CHECK 0; SAMPLE ICTERIC CHECK 0; SAMPLE LIPEMIA CHECK 0; SODIUM 139 MEQ/L (136-147); UREA NITROGEN (BUN) 31 mg/dL (9-23)
[2016-11-03 07:15] VITALS: BP 106/52
[2016-11-03 11:49] LABS: POINT-OF-CARE METER ID UU14162508
[2016-11-03 11:52] VITALS: BP 108/74
[2016-11-03 15:45] VITALS: BP 110/58
[2016-11-03 17:07] LABS: POINT-OF-CARE METER ID UU14162508
[2016-11-03 22:02] VITALS: BP 115/56
[2016-11-04] VITALS (7 sets, daily range): BP systolic 115–126; BP diastolic 50–58
[2016-11-04 08:52] LABS: HEMATOCRIT 35.9 % (36.0-46.0); MCH 30.4 PG (29.0-34.0); MCHC 32.3 G/DL (30.0-36.0); MCV 94.2 FL (83-99); MEAN PLAT.VOLUME 11.5 uM^3 (9.5-12.4); PLATELET COUNT 290 K/uL (156-360); RBC DIS.WIDTH-CV 16.5 % (11.8-14.6); RBC DIS.WIDTH-SD 57.2 % (39-53)
[2016-11-04 08:53] LABS: RED BLOOD COUNT 3.81 M/uL (3.80-5.20); WHITE BLOOD COUNT 13.8 K/uL (4.1-10.2)
[2016-11-04 09:37] LABS: ANION GAP 8 MEQ/L (2-14); CHLORIDE 106 MEQ/L (99-109); GFR ESTIMATE (CALCULATED) > 59 mL/min/; GLUCOSE 136 mg/dL (70-99); POTASSIUM 4.6 MEQ/L (3.7-5.4); SAMPLE HEMOLYSIS CHECK 0; SAMPLE ICTERIC CHECK 0; SAMPLE LIPEMIA CHECK 0; SODIUM 137 MEQ/L (136-147); UREA NITROGEN (BUN) 24 mg/dL (9-23)
[2016-11-04 13:14] LABS: POINT-OF-CARE METER ID UU14162508
[2016-11-04 13:39] LABS: ADD MIUA? YES; BILIRUBIN NEGATIVE; BLOOD NEGATIVE; COLOR YELLOW ((YELLOW)); GLUCOSE (STRIP) NEGATIVE; KETONES NEGATIVE; LEUKOCYTES LARGE; NITRITE NEGATIVE; PROTEIN (STRIP) NEGATIVE; SPECIFIC GRAVITY 1.014 (1.000-1.030); UROBILINOGEN 0.2 MG/DL (0.2-1.0)
[2016-11-04 13:54] LABS: RED BLOOD CELLS 0-5 /HPF (0-5); WHITE BLOOD CELLS TNTC /HPF (0-5); WHITE BLOOD CELLS CLUMP FEW /HPF (0-5)
[2016-11-04 13:55] LABS: BACTERIA RARE /HPF; EPITHELIAL CELLS RARE /HPF; MUCUS 3+ /LPF; UCUL ADDED? YES
[2016-11-05 03:38] VITALS: BP 120/52
[2016-11-05 07:08] LABS: POINT-OF-CARE METER ID UU14162508
[2016-11-05 07:29] LABS: HEMATOCRIT 30.6 % (36.0-46.0); MCH 30.7 PG (29.0-34.0); MCHC 32.4 G/DL (30.0-36.0); MEAN PLAT.VOLUME 11.2 uM^3 (9.5-12.4); PLATELET COUNT 303 K/uL (156-360); RBC DIS.WIDTH-CV 16.1 % (11.8-14.6); RBC DIS.WIDTH-SD 56.1 % (39-53); RED BLOOD COUNT 3.22 M/uL (3.80-5.20)
[2016-11-05 07:31] LABS: ANION GAP 7 MEQ/L (2-14); CHLORIDE 106 MEQ/L (99-109); GFR ESTIMATE (CALCULATED) > 59 mL/min/; GLUCOSE 104 mg/dL (70-99); SAMPLE HEMOLYSIS CHECK 0; SAMPLE ICTERIC CHECK 0; SAMPLE LIPEMIA CHECK 0; SODIUM 136 MEQ/L (136-147); UREA NITROGEN (BUN) 14 mg/dL (9-23)
[2016-11-05 07:33] LABS: WHITE BLOOD COUNT 9.4 K/uL (4.1-10.2)
[2016-11-05 07:36] LABS: POTASSIUM 3.6 MEQ/L (3.7-5.4)
[2016-11-05 08:00] VITALS: BP 129/54
[2016-11-05 13:06] LABS: POINT-OF-CARE METER ID UU14162508
[2016-11-05 15:45] VITALS: BP 114/55
[2016-11-05 20:41] VITALS: BP 132/62
[2016-11-05 23:22] VITALS: BP 121/62
[2016-11-06 03:17] VITALS: BP 109/55
[2016-11-06 07:57] LABS: ANION GAP 8 MEQ/L (2-14); CHLORIDE 104 MEQ/L (99-109); GFR ESTIMATE (CALCULATED) > 59 mL/min/; GLUCOSE 159 mg/dL (70-99); MAGNESIUM 1.9 mg/dl (1.3-2.7); POTASSIUM 4.4 MEQ/L (3.7-5.4); SAMPLE HEMOLYSIS CHECK 0; SAMPLE ICTERIC CHECK 0; SAMPLE LIPEMIA CHECK 0; SODIUM 136 MEQ/L (136-147); UREA NITROGEN (BUN) 12 mg/dL (9-23)
[2016-11-06 08:10] VITALS: BP 144/61
[2016-11-06 11:22] VITALS: BP 114/57
[2016-11-06 15:42] VITALS: BP 117/56
[2016-11-06 19:44] VITALS: BP 112/57
[2016-11-06 23:36] VITALS: BP 123/58
[2016-11-07 03:43] VITALS: BP 115/57
[2016-11-07 06:42] LABS: POINT-OF-CARE METER ID UU14162508
[2016-11-07 07:31] VITALS: BP 118/56
[2016-11-07 07:57] LABS: ANION GAP 6 MEQ/L (2-14); CHLORIDE 104 MEQ/L (99-109); GFR ESTIMATE (CALCULATED) > 59 mL/min/; GLUCOSE 131 mg/dL (70-99); MAGNESIUM 1.9 mg/dl (1.3-2.7); POTASSIUM 4.2 MEQ/L (3.7-5.4); SAMPLE HEMOLYSIS CHECK 0; SAMPLE ICTERIC CHECK 0; SAMPLE LIPEMIA CHECK 0; SODIUM 136 MEQ/L (136-147); UREA NITROGEN (BUN) 14 mg/dL (9-23)
[2016-11-07 12:16] VITALS: BP 120/64
[2016-11-07 19:31] VITALS: BP 118/60
[2016-11-07 23:21] VITALS: BP 122/63
[2016-11-08 03:41] VITALS: BP 120/65
[2016-11-08 08:00] VITALS: BP 102/52
[2016-11-08] MEDS ORDERED: ZIPRASIDONE HCL20 MG PO (10:02)
== END 2016-11-08 12:05 | DRG 329 ==
LOC: EME 16:53 → 5SOUTH 10-01 03:58 → 4WEST 10-01 03:58 → EDOF 10-01 03:58 → 5SOUTH 10-01 06:04 → 4WEST 10-13 22:00 → 5SOUTH 10-13 22:22 → 4WEST 10-20 19:54 → 2EAST 11-02 11:43
PROVIDERS: Anesthesiology; Emergency Medicine; Hospitalist; Internal Medicine; Internal Medicine Nephrology; Internal Medicine Pulmonary Disease; Nurse Practitioner Adult Health; Physician Assistant; Surgery
PROC: 0W993ZZ Drainage of Right Pleural Cavity, Percutaneous Approach (ICD-10-PCS; 2016-10-12)
PROC: 0W9B3ZZ Drainage of Left Pleural Cavity, Percutaneous Approach (ICD-10-PCS; 2016-10-12)
PROC: 05H633Z Insertion of Infusion Device into Left Subclavian Vein, Percutaneous Approach (ICD-10-PCS; 2016-10-12)
PROC: 3E0436Z Introduction of Nutritional Substance into Central Vein, Percutaneous Approach (ICD-10-PCS; 2016-10-12)
PROC: 0WUF0KZ Supplement Abdominal Wall with Nonautologous Tissue Substitute, Open Approach (ICD-10-PCS; principal; 2016-10-20)
PROC: 05H Upper Veins, Insertion (ICD-10-PCS; principal; 2016-10-20)
PROC: 0D1B0Z4 Bypass Ileum to Cutaneous, Open Approach (ICD-10-PCS; principal; 2016-10-20)
PROC: 0DBE0ZZ Excision of Large Intestine, Open Approach (ICD-10-PCS; principal; 2016-10-20)
PROC: 0FT40ZZ Resection of Gallbladder, Open Approach (ICD-10-PCS; principal; 2016-10-20)
PROC: 0DH64UZ Insertion of Feeding Device into Stomach, Percutaneous Endoscopic Approach (ICD-10-PCS; 2016-11-03)
DX: A04.7 Enterocolitis due to Clostridium difficile (principal); E43 Unspecified severe protein-calorie malnutrition; K82.3 Fistula of gallbladder; M84.48XA Pathological fracture, other site, initial encounter for fracture; J90 Pleural effusion, not elsewhere classified; J98.11 Atelectasis; E87.0 Hyperosmolality and hypernatremia; K43.2 Incisional hernia without obstruction or gangrene; E87.6 Hypokalemia; M47.812 Spondylosis without myelopathy or radiculopathy, cervical region; E86.0 Dehydration; F43.21 Adjustment disorder with depressed mood; R13.10 Dysphagia, unspecified; R62.7 Adult failure to thrive; E78.00 Pure hypercholesterolemia, unspecified; E11.9 Type 2 diabetes mellitus without complications; E78.5 Hyperlipidemia, unspecified; D64.9 Anemia, unspecified; R09.02 Hypoxemia; Z68.24 Body mass index [BMI] 24.0-24.9, adult
CPT/HCPCS: 36600; 70450; 71010; 71020; 71250; 72125; 74177; 76937; 78226; 80048; 80048 91; 80053; 80076; 81003; 81050; 82040; 82140; 82248; 82272; 82306; 82310; 82330; 82550; 82570; 82803; 82945; 82948; 83605; 83615; 83615 91; 83630; 83735; 83880; 83970; 84100; 84132; 84132 91; 84134; 84156; 84157; 84443; 84478; 84484; 84540; 84630 90; 85025; 85027; 85610; 85730; 86900; 86901; 86920; 87070; 87077; 87086; 87116; 87177; 87186; 87205; 87206; 87329; 87493; 87506; 87641; 88108; 88305; 88307; 89051; 92526 GN; 92610 GN; 93005; 94002; 94003; 94640; 94640 76; 94760; 94799; 97530 GO; 97530 GP; 99202; 99281; 99285; A9510; A9537; C9113; J0330; J1120; J1644; J1815; J1940; J2060; J2250; J2270; J2370; J2405; J2704; J3010; J3475; J3480; J3489; J7030; J7040; J7050; J7070; P9016; P9045; P9047; S0028; S0030

== ENCOUNTER → 2016-11-17 | Outpatient (CLI) | payer BC ==
[~2016-11-17] MED LIST changes: +ALENDRONATE SOD70 MG PO; +ZIPRASIDONE HCL20 MG PO
== END | disposition home or self-care (01) ==
LOC: AMB 10:58
DX: Z48.815 Encounter for surgical aftercare following surgery on the digestive system (principal); Z43.2 Encounter for attention to ileostomy; Z93.1 Gastrostomy status
CPT/HCPCS: 99211

== ENCOUNTER 2017-10-26 15:59 | Inpatient (IN) | payer BC ==
[~2017-10-26] VITALS: Ht 147.3 cm; Wt 58.6 kg
[~2017-10-26 15:59] MED LIST changes: -TYLENOL EXTRA500 MG PO
[2017-10-26] MEDS ORDERED: TYLENOL ARTHRI650 MG PO (19:33)
[2017-10-26 19:36] LABS: HEMATOCRIT 36.6 % (36.0-46.0); HEMOGLOBIN 12.2 G/DL (11.9-15.5); MCH 31.9 PG (29.0-34.0); MCHC 33.3 G/DL (30.0-36.0); MCV 95.8 FL (83-99); PLATELET COUNT 188 K/uL (156-360); RBC DIS.WIDTH-CV 13.1 % (11.8-14.6); RBC DIS.WIDTH-SD 46.2 % (39-53); RED BLOOD COUNT 3.82 M/uL (3.80-5.20); WHITE BLOOD COUNT 10.6 K/uL (4.1-10.2)
[2017-10-26 19:47] LABS: ALBUMIN 4.1 g/dL (3.2-4.8); CHLORIDE 105 mEq/L (99-109); SODIUM 139 mEq/L (136-147)
[2017-10-26 19:49] LABS: GLUCOSE 122 mg/dL (70-99); TOTAL PROTEIN 6.6 g/dL (6.4-8.3)
[2017-10-26 19:51] LABS: TOTAL BILIRUBIN 0.6 mg/dL (0.0-1.0)
[2017-10-26 19:53] LABS: ALKALINE PHOSPHATASE 35 IU/L (3-129); CREATININE 0.7 mg/dL (0.6-1.3); GFR ESTIMATE (CALCULATED) > 59 mL/min/
[2017-10-26 19:54] LABS: AST (GOT) 26 IU/L (2-34); UREA NITROGEN (BUN) 20 mg/dL (9-23)
[2017-10-26 19:56] LABS: ALT (GPT) 19 IU/L (3-49); CREATINE KINASE 41 IU/L (1-294); TROP-I INTERPRETATION NEGATIVE; TROPONIN-I 0.02 ng/mL (0.0-0.30)
[2017-10-26 22:15] VITALS: BP 176/74
[2017-10-26 23:47] VITALS: BP 140/62
[2017-10-27 04:15] VITALS: BP 108/54
[2017-10-27 06:36] LABS: HEMATOCRIT 33.7 % (36.0-46.0); MCH 31.3 PG (29.0-34.0); MCHC 32.6 G/DL (30.0-36.0); MCV 95.7 FL (83-99); PLATELET COUNT 167 K/uL (156-360); RBC DIS.WIDTH-CV 13.1 % (11.8-14.6); RBC DIS.WIDTH-SD 46.2 % (39-53); RED BLOOD COUNT 3.52 M/uL (3.80-5.20); WHITE BLOOD COUNT 6.7 K/uL (4.1-10.2)
[2017-10-27 07:09] LABS: CHLORIDE 105 MEQ/L (99-109); CREATININE 0.5 MG/DL (0.6-1.3); GFR ESTIMATE (CALCULATED) > 59 mL/min/; GLUCOSE 103 mg/dL (70-99); PHOSPHORUS 2.6 mg/dL (2.5-4.9); POTASSIUM 3.9 MEQ/L (3.7-5.4); SODIUM 138 MEQ/L (136-147); UREA NITROGEN (BUN) 17 mg/dL (9-23)
[2017-10-27 07:46] VITALS: BP 133/60
[2017-10-27 09:06] LABS: INTACT PARATHYROID HORMONE 223 pg/mL (10-69)
[2017-10-27 10:29] LABS: APPEARANCE CLEAR ((CLEAR)); BILIRUBIN NEGATIVE; BLOOD NEGATIVE; COLOR YELLOW ((YELLOW)); GLUCOSE (STRIP) NEGATIVE; KETONES 20; LEUKOCYTES NEGATIVE; NITRITE NEGATIVE; PROTEIN (STRIP) NEGATIVE; SPECIFIC GRAVITY 1.019 (1.000-1.030); UROBILINOGEN 0.2 MG/DL (0.2-1.0)
[2017-10-27 11:42] VITALS: BP 129/63
[2017-10-27 15:28] VITALS: BP 125/60
[2017-10-28 00:40] VITALS: BP 128/57
[2017-10-28 03:55] VITALS: BP 130/66
[2017-10-28 06:12] LABS: HEMATOCRIT 31.2 % (36.0-46.0); HEMOGLOBIN 10.1 G/DL (11.9-15.5); MCH 31.3 PG (29.0-34.0); MCHC 32.4 G/DL (30.0-36.0); MCV 96.6 FL (83-99); PLATELET COUNT 140 K/uL (156-360); RBC DIS.WIDTH-CV 13.1 % (11.8-14.6); RBC DIS.WIDTH-SD 46.7 % (39-53); RED BLOOD COUNT 3.23 M/uL (3.80-5.20); WHITE BLOOD COUNT 5.1 K/uL (4.1-10.2)
[2017-10-28 06:27] LABS: CHLORIDE 110 MEQ/L (99-109); CREATININE 0.4 MG/DL (0.6-1.3); GFR ESTIMATE (CALCULATED) > 59 mL/min/; GLUCOSE 97 mg/dL (70-99); POTASSIUM 3.8 MEQ/L (3.7-5.4); SODIUM 140 MEQ/L (136-147); UREA NITROGEN (BUN) 12 mg/dL (9-23)
[2017-10-28 08:30] VITALS: BP 146/70
[2017-10-28 11:35] VITALS: BP 108/54
[2017-10-28 15:53] VITALS: BP 143/66
[2017-10-28 23:16] VITALS: BP 126/60
[2017-10-29 07:18] VITALS: BP 147/70
[2017-10-29 11:37] VITALS: BP 119/49
[2017-10-29 15:46] VITALS: BP 124/56
[2017-10-29 23:53] VITALS: BP 144/61
[2017-10-30 07:51] VITALS: BP 132/58
[2017-10-30 07:52] VITALS: BP 125/58
[2017-10-30 15:43] VITALS: BP 122/60
[2017-10-30 23:31] VITALS: BP 132/62
[2017-10-31 16:44] VITALS: BP 127/57
[2017-10-31 23:12] VITALS: BP 143/62
[2017-11-01 05:30] LABS: BASOPHIL (%) 0.8 % (0-1); EOSINOPHIL (%) 3.6 % (0-5); EOSINOPHIL COUNT 0.1 K/uL (0-0.3); HEMATOCRIT 29.2 % (36.0-46.0); HEMOGLOBIN 9.5 G/DL (11.9-15.5); IMMATURE GRANULOCYTE (%) 0.8 % (0.0-0.7); LYMPHOCYTE (%) 26.5 % (15-42); MCH 31.7 PG (29.0-34.0); MCHC 32.5 G/DL (30.0-36.0); MCV 97.3 FL (83-99); MONOCYTE (%) 11.2 % (3-12); MONOCYTE COUNT 0.4 K/uL (0-0.8); NEUTROPHIL (%) 57.1 % (45-76); NEUTROPHIL COUNT 2.1 K/uL (1.8-6.4); RBC DIS.WIDTH-CV 13.1 % (11.8-14.6); WHITE BLOOD COUNT 3.7 K/uL (4.1-10.2)
[2017-11-01 05:43] LABS: PLATELET COUNT 183 K/uL (156-360)
[2017-11-01 06:05] LABS: CHLORIDE 106 MEQ/L (99-109); CREATININE 0.4 MG/DL (0.6-1.3); GFR ESTIMATE (CALCULATED) > 59 mL/min/; GLUCOSE 94 mg/dL (70-99); SODIUM 136 MEQ/L (136-147); UREA NITROGEN (BUN) 17 mg/dL (9-23)
[2017-11-01 07:58] VITALS: BP 144/72
[2017-11-01 20:40] VITALS: BP 134/58
[2017-11-01 23:11] VITALS: BP 132/65
[2017-11-02 04:38] VITALS: BP 114/63
[2017-11-02 05:32] LABS: BASOPHIL (%) 0.2 % (0-1); EOSINOPHIL (%) 0 % (0-5); HEMOGLOBIN 10.2 G/DL (11.9-15.5); IMMATURE GRANULOCYTE (%) 0.5 % (0.0-0.7); LYMPHOCYTE COUNT 0.6 K/uL (1.0-2.8); MCH 31.9 PG (29.0-34.0); MCHC 32.9 G/DL (30.0-36.0); MCV 96.9 FL (83-99); MONOCYTE (%) 5.1 % (3-12); MONOCYTE COUNT 0.3 K/uL (0-0.8); NEUTROPHIL (%) 85.2 % (45-76); NEUTROPHIL COUNT 5.2 K/uL (1.8-6.4); PLATELET COUNT 212 K/uL (156-360); RBC DIS.WIDTH-CV 12.9 % (11.8-14.6); WHITE BLOOD COUNT 6.1 K/uL (4.1-10.2)
[2017-11-02 06:05] LABS: CHLORIDE 106 MEQ/L (99-109); CREATININE 0.4 MG/DL (0.6-1.3); GFR ESTIMATE (CALCULATED) > 59 mL/min/; GLUCOSE 128 mg/dL (70-99); POTASSIUM 4.5 MEQ/L (3.7-5.4); SODIUM 137 MEQ/L (136-147); UREA NITROGEN (BUN) 16 mg/dL (9-23)
[2017-11-02 08:15] VITALS: BP 129/60
[2017-11-02 11:16] VITALS: BP 115/53
[2017-11-02 15:21] VITALS: BP 125/59
[2017-11-03 00:23] VITALS: BP 136/62
[2017-11-03 06:01] LABS: BASOPHIL (%) 0.4 % (0-1); EOSINOPHIL (%) 1.5 % (0-5); EOSINOPHIL COUNT 0.1 K/uL (0-0.3); HEMATOCRIT 27.4 % (36.0-46.0); IMMATURE GRANULOCYTE (%) 0.4 % (0.0-0.7); LYMPHOCYTE (%) 24.4 % (15-42); LYMPHOCYTE COUNT 1.3 K/uL (1.0-2.8); MCHC 32.8 G/DL (30.0-36.0); MCV 97.5 FL (83-99); MONOCYTE (%) 11.9 % (3-12); MONOCYTE COUNT 0.7 K/uL (0-0.8); NEUTROPHIL (%) 61.4 % (45-76); NEUTROPHIL COUNT 3.4 K/uL (1.8-6.4); PLATELET COUNT 223 K/uL (156-360); RBC DIS.WIDTH-SD 47.1 % (39-53); RED BLOOD COUNT 2.81 M/uL (3.80-5.20); WHITE BLOOD COUNT 5.5 K/uL (4.1-10.2)
[2017-11-03 06:25] LABS: CHLORIDE 106 MEQ/L (99-109); CREATININE 0.4 MG/DL (0.6-1.3); GFR ESTIMATE (CALCULATED) > 59 mL/min/; GLUCOSE 97 mg/dL (70-99); POTASSIUM 4.4 MEQ/L (3.7-5.4); SODIUM 138 MEQ/L (136-147); UREA NITROGEN (BUN) 22 mg/dL (9-23)
[2017-11-03 08:17] VITALS: BP 107/522
[2017-11-03 16:50] VITALS: BP 123/56
[2017-11-04 00:49] VITALS: BP 114/55
[2017-11-04 08:39] VITALS: BP 121/60
[2017-11-04] MEDS ORDERED: HYDROCODON-ACE1 EAC7 PO (11:16)
[2017-11-04] MEDS ORDERED: CYCLOBENZAPRINE10 MG PO (12:55)
[2017-11-04] MEDS ORDERED: POLYETHYLENE GL17 GM PO (12:57)
== END 2017-11-04 15:47 | DRG 494 ==
LOC: EME 15:59 → EDOF 20:49 → 3EAST 20:49 → ENRESERV 20:50 → 3EAST 21:56
PROVIDERS: Emergency Medicine; Hospitalist; Internal Medicine
DX: S42.212A Unspecified displaced fracture of surgical neck of left humerus, initial encounter for closed fracture (principal); S42.255A Nondisplaced fracture of greater tuberosity of left humerus, initial encounter for closed fracture; S42.122A Displaced fracture of acromial process, left shoulder, initial encounter for closed fracture; W17.89XA Other fall from one level to another, initial encounter; Y93.A1 Activity, exercise machines primarily for cardiorespiratory conditioning; Y92.008 Other place in unspecified non-institutional (private) residence as the place of occurrence of the external cause; E83.52 Hypercalcemia; S80.212A Abrasion, left knee, initial encounter; S80.211A Abrasion, right knee, initial encounter; G89.11 Acute pain due to trauma; M25.512 Pain in left shoulder; I11.0 Hypertensive heart disease with heart failure; I50.9 Heart failure, unspecified; E11.9 Type 2 diabetes mellitus without complications; E78.5 Hyperlipidemia, unspecified; Z66 Do not resuscitate; M19.90 Unspecified osteoarthritis, unspecified site; M21.00 Valgus deformity, not elsewhere classified, unspecified site; M81.0 Age-related osteoporosis without current pathological fracture; Z85.42 Personal history of malignant neoplasm of other parts of uterus; Z90.710 Acquired absence of both cervix and uterus; Z87.442 Personal history of urinary calculi; Z93.3 Colostomy status; Z79.82 Long term (current) use of aspirin; Z79.84 Long term (current) use of oral hypoglycemic drugs; Z82.49 Family history of ischemic heart disease and other diseases of the circulatory system; Z80.9 Family history of malignant neoplasm, unspecified
CPT/HCPCS: 70450; 71045; 72125; 73030; 73060; 73200; 76000; 80048; 80053; 81003; 82306; 82550; 82948; 83970; 84100; 84484; 85025; 85027; 93005; 94799; 97530 GP; 99281; 99285; C1713; G0378; J0131; J0690; J1650; J2405; J2795; J3010; J7030; J7040